=== PATIENT | male | born 1955 | race Caucasian/White ===

== ENCOUNTER 2017-04-21 21:15 | Inpatient (IN) | payer SELFPAY ==
[~2017-04-21] VITALS: Ht 185.4 cm; Wt 114.6 kg
[~2017-04-21 21:15] MED LIST: IBUP600T26 PO
[2017-04-21 21:31] VITALS: BP 149/99; PULSE 90; RESP 20; TEMP 98.3; O2SAT 99
[2017-04-21 22:21] LABS: AUTOMATED NEUTROPHIL # 4.8 TH/MM3 (1.8-7.7); BASOPHIL # 0.1 TH/MM3 (0-0.2); BASOPHIL % 0.9 % (0.0-2.0); EOSINOPHIL # 0.1 TH/MM3 (0-0.4); EOSINOPHIL % 0.8 % (0.0-4.0); HEMATOCRIT 47.8 % (39.0-51.0); HEMOGLOBIN 17.1 GM/DL (13.0-17.0); LYMPH % 21.1 % (9.0-44.0); LYMPHOCYTE # 1.5 TH/MM3 (1.0-4.8); MEAN CELL VOLUME 98.1 FL (80.0-100.0); MEAN CORPUSCULAR HGB CONC 35.7 % (32.0-36.0); MEAN PLATELET VOLUME 7.7 FL (7.0-11.0); MONO % 10.9 % (0.0-8.0); MONOCYTE # 0.8 TH/MM3 (0-0.9); NEUT % 66.3 % (16.0-70.0); PLATELET COUNT 249 TH/MM3 (150-450); RED BLOOD COUNT 4.87 MIL/MM3 (4.50-5.90); RED CELL DISTRIBUTION WIDTH 14.3 % (11.6-17.2); WHITE BLOOD COUNT 7.2 TH/MM3 (4.0-11.0)
[2017-04-21 22:40] LABS: ALBUMIN 3.9 GM/DL (3.4-5.0); AST (GOT) 60 U/L (15-37); BICARBONATE 25.1 MEQ/L (21.0-32.0); BLOOD UREA NITROGEN 9 MG/DL (7-18); CALCIUM 8.8 MG/DL (8.5-10.1); CHLORIDE 101 MEQ/L (98-107); CREATININE 0.98 MG/DL (0.60-1.30); GLOMERULAR FILTRATION RATE 77 ML/MIN (>89); GLUCOSE,RANDOM 122 MG/DL (74-106); SODIUM (NA) 137 MEQ/L (136-145)
[2017-04-21 22:42] LABS: ALT (GPT) 43 U/L (12-78)
[2017-04-21 22:44] LABS: ALKALINE PHOSPHATASE 75 U/L (45-117); TOTAL BILIRUBIN ADULT 0.4 MG/DL (0.2-1.0); TOTAL PROTEIN 8.3 GM/DL (6.4-8.2)
[2017-04-21] MEDS ORDERED: LORazepam 2 MG/ML VIAL IM ONE (22:45)
[2017-04-21 22:52] LABS: ACETAMINOPHEN LESS THAN 2.0 MCG/ML (10.0-30.0)
--- NOTE | 2017-04-21 23:14 | PD ---
HPI Chief Complaint: Psychiatric Symptoms Time Seen by Provider: 21:47 Travel History International Travel<30 days: No Contact w/Intl Traveler<30days: No Traveled to known affect area: No History of Present Illness HPI Patient is a 62 year old male brought in by his family because they are concerned he is a danger to himself and others. He has a history of chronic alcoholism, but family states he has been getting much worse since the of his 2 weeks ago. He admits his is sad over her , but denies any other issues. Family reports he has been making statements that he wants to kill himself. They report he is not caring for himself and performing basic hygiene. PFSH Past Medical History Medical History: Denies Significant Hx Diminished Hearing: Yes ([facility]) Tetanus Vaccination: Unknown Influenza Vaccination: No Past Surgical History Appendectomy: Yes Social History Alcohol Use: Yes (every other day) Tobacco Use: Yes Substance Use: No Allergies-Medications (Allergen,Severity, Reaction): Coded Allergies: penicillin G (Unverified Allergy, Severe, Rash, 10/02/16) Reported Meds & Prescriptions Reported Meds & Active Scripts Active Ibuprofen 600 Mg Tab 600 Mg PO Q8H PRN Review of Systems ROS Limitations: Intoxication Psychiatric: Positive: Depression Physical Exam Narrative GENERAL: Awake and alert, in no acute distress. SKIN: Focused skin assessment warm/dry. No wounds or signs of infection. HEAD: Atraumatic. Normocephalic. EYES: Pupils equal and round. No scleral icterus. EOMI. ENT: Mucous membranes pink and moist. NECK: Trachea midline. No JVD. CARDIOVASCULAR: Regular rate and rhythm. No murmur appreciated. RESPIRATORY: No accessory muscle use. Clear to auscultation. Breath sounds equal bilaterally. GASTROINTESTINAL: Abdomen soft, non-tender, nondistended. MUSCULOSKELETAL: No obvious deformities. No clubbing. No cyanosis. No edema. NEUROLOGICAL: Awake and alert. No obvious cranial nerve deficits. Motor grossly within normal limits. Normal speech. PSYCHIATRIC: Appropriate mood and affect; insight and judgment normal. Data Data Last Documented VS Vital Signs Date Time Temp Pulse Resp B/P (MAP) Pulse Ox O2 Delivery O2 Flow Rate FiO2 04/21/17 21:31 98.3 90 20 149/99 (116) 99 Orders Orders Complete Blood Count With Diff (04/21/17 21:58) Comprehensive Metabolic Panel (04/21/17 21:58) Psych Screen (04/21/17 21:58) Drug Screen, Random Urine (04/21/17 21:58) Alcohol (Ethanol) (04/21/17 21:58) Salicylates (Aspirin) (04/21/17 21:58) Tylenol (Acetaminophen) (04/21/17 21:58) Lorazepam Inj (Ativan Inj) (04/21/17 22:45) Labs Laboratory Tests Test 04/21/17 22:05 White Blood Count 7.2 TH/MM3 Red Blood Count 4.87 MIL/MM3 Hemoglobin 17.1 GM/DL Hematocrit 47.8 % Mean Corpuscular Volume 98.1 FL Mean Corpuscular Hemoglobin 35.0 PG Mean Corpuscular Hemoglobin Concent 35.7 % Red Cell Distribution Width 14.3 % Platelet Count 249 TH/MM3 Mean Platelet Volume 7.7 FL Neutrophils (%) (Auto) 66.3 % Lymphocytes (%) (Auto) 21.1 % Monocytes (%) (Auto) 10.9 % Eosinophils (%) (Auto) 0.8 % Basophils (%) (Auto) 0.9 % Neutrophils # (Auto) 4.8 TH/MM3 Lymphocytes # (Auto) 1.5 TH/MM3 Monocytes # (Auto) 0.8 TH/MM3 Eosinophils # (Auto) 0.1 TH/MM3 Basophils # (Auto) 0.1 TH/MM3 CBC Comment DIFF FINAL Differential Comment Blood Urea Nitrogen 9 MG/DL Creatinine 0.98 MG/DL Random Glucose 122 MG/DL Total Protein 8.3 GM/DL Albumin 3.9 GM/DL Calcium Level 8.8 MG/DL Alkaline Phosphatase 75 U/L Aspartate Amino Transf (AST/SGOT) 60 U/L Alanine Aminotransferase (ALT/SGPT) 43 U/L Total Bilirubin 0.4 MG/DL Sodium Level 137 MEQ/L Potassium Level 3.5 MEQ/L Chloride Level 101 MEQ/L Carbon Dioxide Level 25.1 MEQ/L Anion Gap 11 MEQ/L Estimat Glomerular Filtration Rate 77 ML/MIN Salicylates Level 3.3 MG/DL Acetaminophen Level LESS THAN 2.0 MCG/ML Ethyl Alcohol Level 299 MG/DL MDM Medical Decision Making Medical Screen Exam Complete: Yes Emergency Medical Condition: Yes Medical Record Reviewed: Yes Differential Diagnosis intoxication vs depression vs psychosis Narrative Course Patient is a 62 year old male who is brought in by his family due to concerns for his safety and the safety of others. He has no medical complaints at this time. He is placed under a Novak Act. Patient was given Ativan due to agitation and his continuing getting out of bed and almost falling. Labs show an elevated alcohol level, no other acute abnormalities. Patient medically cleared for psychiatric evaluation. Diagnosis Primary Impression: Alcohol intoxication Qualified Codes: F10.920 - Alcohol use, unspecified with intoxication, uncomplicated Additional Impression: Psychosis Qualified Codes: F29 - Unspecified psychosis not due to a substance or known physiological condition Lynne Romero MD Apr 21, 2017 23:14
[2017-04-21] MEDS ORDERED: LORazepam 2 MG TAB PO PRN (23:15)
[2017-04-21] MEDS ORDERED: FLUMAZENIL 0.5 MG/5 ML VIAL IV PUSH PRN (23:15)
[2017-04-21] MEDS ORDERED: LORazepam 2 MG/ML VIAL IV PUSH PRN ×4 (23:15)
[2017-04-21] MEDS ORDERED: LORazepam 1 MG TAB PO PRN (23:15)
[2017-04-22 05:17] VITALS: BP 161/99; PULSE 75; RESP 18; O2SAT 99
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
[2017-04-22 11:06] VITALS: BP 166/84; PULSE 95; RESP 21; O2SAT 97
[2017-04-22] MEDS ORDERED: NICOTINE 21 MG/24 HR PATCH T-DERMAL PRN (17:30)
[2017-04-22] MEDS ORDERED: MAGNESIUM HYDROXIDE SUSP 30 ML CUP PO PRN (17:30)
[2017-04-22] MEDS ORDERED: BENZTROPINE MESYLATE 2 MG/2 ML VIAL IM PRN (17:30)
[2017-04-22] MEDS ORDERED: diphenhydrAMINE HCL 50 MG CAP PO PRN (17:30)
[2017-04-22] MEDS ORDERED: BENZTROPINE MESYLATE 1 MG TAB PO PRN (17:30)
[2017-04-22] MEDS ORDERED: ALUMINUM/MAGNESIUM/SIMETH 30 ML CUP PO PRN (17:30)
[2017-04-22] MEDS ORDERED: ACETAMINOPHEN 325 MG TAB PO PRN (17:30)
[2017-04-22] MEDS ORDERED: REMOVE OLD NICODERM (NICOTINE) PATCH T-DERMAL PRN (18:00)
[2017-04-22 18:05] VITALS: BP 170/84; PULSE 87; RESP 18; O2SAT 100
[2017-04-22 20:15] VITALS: BP 175/99; PULSE 97; TEMP 98.9
[2017-04-23 06:11] VITALS: BP 112/65; PULSE 70; RESP 18; TEMP 98
[2017-04-23] MEDS: THIAMINE HCL 100 MG TAB PO SCH (08:17)
[2017-04-23] MEDS: FOLIC ACID 1 MG TAB PO SCH (08:17)
[2017-04-23 09:08] LABS: BICARBONATE 28.4 MEQ/L (21.0-32.0); CALCIUM 8.8 MG/DL (8.5-10.1); CREATININE 1.15 MG/DL (0.60-1.30)
[2017-04-23 09:10] LABS: CHOLESTEROL 156 MG/DL (120-200)
[2017-04-23 09:17] LABS: CHOLESTEROL/ HDL RATIO 3.07 RATIO; HDL CHOLESTEROL 50.8 MG/DL (40.0-60.0); LDL CHOLESTEROL 74 MG/DL (0-99); TRIGLYCERIDES 154 MG/DL (42-150)
--- NOTE | 2017-04-23 14:54 | HHI.HP ---
Provisional Diagnosis Admission Date Apr 22, 2017 at 17:30 [place] I. Adjustment so with mixed disturbances of emotion and conduct F 43.25, alcohol abuse with intoxication F 10.129 Certification of Person's Competence To Provide Express and Informed Consent I have personally examined Srinivasan Munoz , a person being served at [facility] on, Apr 23, 2017 14:35. Express and informed consent means consent voluntarily given in writing, by a competent person, after sufficient explanation and disclosure of the subject matter involved to enable the person to make a knowing and willful decision without any element of force, fraud, deceit, duress, or other form of constraint or coercion. This person is 18 years of age or older, is not now known to be incompetent to consent to treatment with a guardian advocate, and does not have a health care surrogate or proxy currently making medical treatment decisions. I have found this person to be one of the following: [] Competent to provide express and informed consent, as defined above, for voluntary admission to this facility and is competent to provide express and informed consent for treatment. He/she has the consistent capacity to make well reasoned, willful, and knowing decisions concerning his or her medical or mental health treatment. The person fully and consistently understands the purpose of the admission for examination/placement and is fully capable of personally exercising all rights assured under [place] [] Incompetent to provide express and informed consent to voluntary admission, and this is incompetent to provide express and informed consent to treatment. The person must be transferred to involuntary status and a petition for a guardian advocate filed with the Circuit Court. [xx] Refusing to provide express and informed consent to voluntary admission but is competent to provide express and informed consent for treatment. The person must be discharged or transferred to involuntary status. Form shall be completed within 24 hours of a person's arrival at the receiving facility and filed in the clinical record of each person: 1. Admitted on a voluntary basis 2. Permitted to provide express and informed consent to his/her own treatment 3. Allowed to transfer from involuntary to voluntary status 4. Prior to permitting a person to consent to his or her own treatment after having been previously found incompetent to consent to treatment. History of Present Illness Capacity: Lacks Capacity (patient lacks capacity to sign for admission, patient has capacity to sign for medication) HPI Patient is 62-year-old white male who comes here under Novak act signed by Lynne Sandersshon [facility] dated April 21, 2017 at 10:30 PM at document reviewed stating depression, alcoholism, patient says he is feeling depressed since his 2 weeks ago. His family states he has been making statements about killing himself family reports she does not take care of himself does not bathe our practice basic hygiene they also report he drinks and drives and is a danger to others. Patient seen screened in the ED blood alcohol level of 299 negative toxicology. Patient was initially seen in consultation by Dr. Augustine Hudson yesterday. Recommended hospitalization on the psychiatric unit once medically clear. Patient seen in his room on 2600 with nurse charito chery. He is alert oriented [place] heavily built white male somewhat disheveled in appearance stating his of cancer 2 weeks ago in his arms. He states that they've been but they've been together 34 years and have a 21-year-old daughter. It appears his "" sign the family who over to the daughter. It appears the patient is planning on leaving the house and moving in with her friend. Since his he said increased depression with significant increase in his alcohol use with daily drinking. Though he does acknowledge alcohol use since a young adult more increase in his 30s she does have a history of DUI a number of years ago. He does acknowledge episodes in his life of daily drinking and drinking until intoxicated. Though he denies any other legal issues related to it. He denies any other drug use. He denies any prior psychiatric contact hospitalization her psychotropic medication. He is vague about continued suicidal ideation. He does denied at this time staying he is X and he would not do that. Main event at the present time I feel patient does meet criteria for further observation assessment under the Novak act. I will do first opinion request second opinion. I feel he does have capacity to sign for medications. We will the hospitalist consult will less, we will initiate thewa protocol, will attempt to reach a tremor grief counselor to assist us. Patient also states he fell a few days ago landed on the tip of his right shoulder is having continual pain and a lump on that area will get it x-ray of the left shoulder also. Hopefully we fairly short stay and we can return the patient to his family Review of Systems Constitutional: DENIES: Diaphoretic episodes, Fatigue, Fever, Weight gain, Weight loss, Chills, Dizziness, Change in appetite, Night Sweats Endocrine: DENIES: Heat/cold intolerance, Polydipsia, Polyuria, Polyphagia Eyes: DENIES: Blurred vision, Diplopia, Eye inflammation, Eye pain, Vision loss , Photosensitivity, Double Vision Ears, nose, mouth, throat: DENIES: Tinnitus, Hearing loss, Vertigo, Nasal discharge, Oral lesions, Throat pain, Hoarseness, Ear Pain, Running Nose, Epistaxis, Sinus Pain, Toothache, Odynophagia Respiratory: DENIES: Apneas, Cough, Snoring, Wheezing, Hemoptysis, Sputum production, Shortness of breath Cardiovascular: DENIES: Chest pain, Palpitations, Syncope, Dyspnea on Exertion , PND, Lower Extremity Edema, Orthopnea, Claudication Gastrointestinal: DENIES: Abdominal pain, Black stools, Bloody stools, Constipation, Diarrhea, Nausea, Vomiting, Difficulty Swallowing, Anorexia Genitourinary: DENIES: Sexual dysfunction, Urinary frequency, Urinary incontinence, Urgency, Hematuria, Dysuria, Nocturia, Penile Discharge, Testicular Pain, Testicular Swelling Musculoskeletal: COMPLAINS OF: Joint pain, Joint Swelling Integumentary: DENIES: Abnormal pigmentation, Nail changes, Pruritus, Rash Hematologic/lymphatic: DENIES: Bruising, Lymphadenopathy Immunologic/allergic: DENIES: Eczema, Urticaria Neurologic: DENIES: Abnormal gait, Headache, Localized weakness, Paresthesias, Seizures, Speech Problems, Tremor, Poor Balance Psychiatric: COMPLAINS OF: Depression, Suicidal Ideation (with alcohol abuse) Past Psych History Psychological trauma history Patient denies Violence risk - others (6 mos) Low Violence risk - self (6 mos) Patient made suicidal ideation statements Substance Abuse History Drugs/Alcohol past 12 months Long history alcohol abuse active at the present time Past Family Social History Coded Allergies: penicillin G (Unverified Allergy, Severe, Rash, 10/02/16) Discontinued Scripts Ibuprofen (Ibuprofen) 600 Mg Tab, 600 MG PO Q8H Y for PAIN, #30 TAB Prov:Courtney Robert 04/26/14 Current Medications Medications (Trade) Dose Ordered Sig/Amarilis Route Start Time Stop Time Status Last Admin (Romazicon Inj) 0.2 mg Q1M PRN IV PUSH 04/21/17 23:15 (Ativan) 1 mg Q4H PRN PO 04/21/17 23:15 (Ativan Inj) 1 mg Q4H PRN IV PUSH 04/21/17 23:15 04/21/17 23:46 (Ativan) 2 mg Q2H PRN PO 04/21/17 23:15 (Ativan Inj) 2 mg Q2H PRN IV PUSH 04/21/17 23:15 (Ativan Inj) 2 mg Q1H PRN IV PUSH 04/21/17 23:15 (Ativan Inj) 2 mg Q15M PRN IV PUSH 04/21/17 23:15 (Vitamin B1) 100 mg DAILY PO 04/23/17 09:00 04/23/17 08:17 (Folate) 1 mg DAILY PO 04/23/17 09:00 04/23/17 08:17 (Benadryl) 50 mg HS PRN PO 04/22/17 17:30 (Tylenol) 650 mg Q4H PRN PO 04/22/17 17:30 (Milk Of Magnesia Liq) 30 ml DAILY PRN PO 04/22/17 17:30 (Mag-Al Plus Susp Liq) 30 ml Q6H PRN PO 04/22/17 17:30 (Habitrol 21 Mg Patch.24 Hr) 1 patch DAILY PRN T-DERMAL 04/22/17 17:30 (Cogentin) 1 mg Q12H PRN PO 04/22/17 17:30 (Cogentin Inj) 1 mg Q12H PRN IM 04/22/17 17:30 Miscellaneous Information 1 HS PRN T-DERMAL 04/22/17 18:00 Family Psych History Patient denies Social History Patient recently of his of 34 years 2 weeks ago continues to grieve. He has 2 older sons by a prior relationship, has a 20-year-old daughter by this relationship Patient's Strengths (min. 2) Patient verbal label [facility] cooperative Physical Exam Patient medically cleared ED patient is having visual in no acute distress no respiratory distress, no complaints of abdominal pain, does complain of pain and slight swelling over the tip of his left shoulder, will be getting x-ray of that area, there is some slight decrease range of motion at the joint otherwise Vital Signs Vital Signs Date Time Temp Pulse Resp B/P (MAP) Pulse Ox O2 Delivery O2 Flow Rate FiO2 04/23/17 06:11 98.0 70 18 112/65 (81) 04/22/17 18:05 100 Room Air I/O 04/23/17 04/23/17 04/24/17 08:00 16:00 00:00 Intake Total 360 ml Balance 360 ml Lab Results Test 04/23/17 08:36 Blood Urea Nitrogen 14 MG/DL Creatinine 1.15 MG/DL Random Glucose 152 MG/DL Calcium Level 8.8 MG/DL Sodium Level 136 MEQ/L Potassium Level 3.8 MEQ/L Chloride Level 99 MEQ/L Carbon Dioxide Level 28.4 MEQ/L Anion Gap 9 MEQ/L Estimat Glomerular Filtration Rate 64 ML/MIN Triglycerides Level 154 MG/DL Cholesterol Level 156 MG/DL LDL Cholesterol 74 MG/DL HDL Cholesterol 50.8 MG/DL Cholesterol/HDL Ratio 3.07 RATIO Vitamin B12 Level 436 PG/ML Thyroid Stimulating Hormone 3rd Gen 4.740 uIU/ML Mental Status Examination Appearance: Appropriate Consciousness: Alert Orientation: x4 Motor Activity: Normal gait Speech: Unremarkable Language: Adequate Fund of Knowledge: Adequate Attention and Concentration: Adequate Memory: Unremarkable Mood: Sad Affect: Other (decreased range and intensity) Thought Process & Associations: Intact Thought Content: Appropriate Hallucination Type: None Delusion Type: None Suicidal Ideation: Yes (patient denies at this time) Suicidal Plan: No Suicidal Intention: No Homicidal Ideation: No Homicidal Plan: No Homicidal Intention: No Insight: Adequate Judgment: Adequate Assessment & Plan Problem List: (1) Adjustment disorder with mixed disturbance of emotions and conduct ICD Codes: F43.25 - Adjustment disorder with mixed disturbance of emotions and conduct (2) Alcohol abuse with intoxication ICD Codes: F10.129 - Alcohol abuse with intoxication, unspecified Assessment & Plan Estimated LOS: days patient doesn't meet criteria for further assessment and observation of the Novak act. I'll do first opinion request second opinion. I feel his capacity sign for medications. Was consult will less, will get x-ray of his left shoulder, will place him on theiwa protocol. Also history of fairly short stay and can return to his family C Discharge Planning Return to his family Request HC Surrog/Guard Advoc?: No Srinivasan Jones MD Apr 23, 2017 14:54
[2017-04-23 15:29] VITALS: BP 186/109; PULSE 70; RESP 18; TEMP 98.2; O2SAT 99
--- NOTE | 2017-04-23 15:30 | RADRPT ---
EXAM DATE/TIME: 04/23/2017 15:00 [place] COMPARISON: No previous studies available for comparison. INDICATIONS : Left shoulder pain due to fall 2 weeks ago. MEDICAL HISTORY : None. SURGICAL HISTORY : None. ENCOUNTER: Initial ACUITY: 1 day PAIN SCORE: 3/10 LOCATION: Left Shoulder. FINDINGS: 5 images of the left shoulder reveal elevation of the distal clavicle relative to the acromion. There is widening of the coracoclavicular distance. There is widening of the acromioclavicular distance. S ubacromial space narrowing is seen due to inferior osteophyte production arising from the acromion. M ild osteophytes seen at the glenohumeral joint. No acute fracture observed. Soft tissues are unremark able. CONCLUSION: Acromioclavicular separation. Rajeev Helm Jr., MD on April 23, 2017 at 15:27 Board Certified Radiologist. This report was verified electronically.
[2017-04-23] MEDS ORDERED: LISINOPRIL 5 MG TAB PO ONE (16:00)
[2017-04-23] MEDS ORDERED: hydrALAZINE HCL 10 MG TAB PO PRN (16:00)
[2017-04-23] MEDS ORDERED: cloNIDine HCL 0.2 MG TAB PO ONE (16:00)
[2017-04-23] MEDS: NICOTINE 21 MG/24 HR PATCH T-DERMAL SCH (17:00)
--- NOTE | 2017-04-23 17:10 | PD.CONS ---
HPI Service [facility] Hospitalists Consult Requested By Psychiatric services Reason for Consult Medical management Primary Care Physician No Primary Care Physician Diagnoses: History of Present Illness This is a 62yo male without any significant PMHX but admittedly does not go to the doctor who presented to [facility] ED by his family due to being concerned he is a danger to himself and others and was placed under Novak Act. Patient has become more depressed since suffering the recent of his 2 weeks ago. Patient was intoxicated at presentation with ethyl alcohol level of 299. Patient has since been admitted to the inpatient psychiatric unit and hospitalist services have been consulted for medical management. Patient is seen and examined. He is calm and pleasant. He reports daily alcohol use of 2- 3 beers/night and occasional whiskey on the weekend. He denies any history of alcohol withdrawals or seizure. He fell onto his left shoulder approximately one month ago and now has a noticeable nonpainful bump on the top of his shoulder. He reports adequate range of motion. He reports progressive numbness of both feet for the past several years. He denies any known hx of diabetes. He denies any dizziness, headache or vision changes. He denies any chest pain or dyspnea. He denies any nausea, vomiting or abdominal pain. He denies any dysuria, hematochezia or melena. He does report episode of passing blood clots in the urine about a month ago but this has since resolved. He reports having high blood pressure in his 20s but improved after he initiated a regular exercise program. Review of Systems Except as stated in HPI: all other systems reviewed are Neg Past Family Social History Allergies: Coded Allergies: penicillin G (Unverified Allergy, Severe, Rash, 10/02/16) Past Medical History Patient denies any previous medical history Past Surgical History Appendectomy Reported Medications Patient denies taking any medications at home Active Ordered Medications Current Medications Medications (Trade) Dose Ordered Sig/Amarilis Route Start Time Stop Time Status Last Admin (Romazicon Inj) 0.2 mg Q1M PRN IV PUSH 04/21/17 23:15 (Ativan) 1 mg Q4H PRN PO 04/21/17 23:15 (Ativan Inj) 1 mg Q4H PRN IV PUSH 04/21/17 23:15 04/21/17 23:46 (Ativan) 2 mg Q2H PRN PO 04/21/17 23:15 (Ativan Inj) 2 mg Q2H PRN IV PUSH 04/21/17 23:15 (Ativan Inj) 2 mg Q1H PRN IV PUSH 04/21/17 23:15 (Ativan Inj) 2 mg Q15M PRN IV PUSH 04/21/17 23:15 (Vitamin B1) 100 mg DAILY PO 04/23/17 09:00 04/23/17 08:17 (Folate) 1 mg DAILY PO 04/23/17 09:00 04/23/17 08:17 (Benadryl) 50 mg HS PRN PO 04/22/17 17:30 (Tylenol) 650 mg Q4H PRN PO 04/22/17 17:30 (Milk Of Magnesia Liq) 30 ml DAILY PRN PO 04/22/17 17:30 (Mag-Al Plus Susp Liq) 30 ml Q6H PRN PO 04/22/17 17:30 (Habitrol 21 Mg Patch.24 Hr) 1 patch DAILY PRN T-DERMAL 04/22/17 17:30 (Cogentin) 1 mg Q12H PRN PO 04/22/17 17:30 (Cogentin Inj) 1 mg Q12H PRN IM 04/22/17 17:30 Miscellaneous Information 1 HS PRN T-DERMAL 04/22/17 18:00 (Prinivil) 5 mg DAILY PO 04/24/17 09:00 (Apresoline) 10 mg Q6HR PRN PO 04/23/17 16:00 (Theragran) 1 tab DAILY PO 04/24/17 09:00 Family History Grandfather, DM Father, CABGx4, age 60 Social History Patient reports tobacco use of 1ppd. He reports alcohol consumption of 2-3 beers/nightly and whiskey on the weekends. He denies any illicit drug use. He lives with his daughter. He lost his to cancer 2 weeks ago. Physical Exam Vital Signs Vital Signs Date Time Temp Pulse Resp B/P (MAP) Pulse Ox O2 Delivery O2 Flow Rate FiO2 04/23/17 15:29 98.2 70 18 186/109 (134) 99 04/23/17 06:11 98.0 70 18 112/65 (81) 04/22/17 20:17 04/22/17 20:15 98.9 97 175/99 (124) 04/22/17 18:05 87 18 170/84 (112) 100 Room Air Physical Exam GENERAL: This is a well-nourished, well-developed obese male patient, in no apparent distress. Awake and alert. Calm and pleasant. SKIN: No rashes, ecchymoses or lesions. Cool and dry. HEAD: Atraumatic. Normocephalic. No temporal or scalp tenderness. EYES: Pupils equal round and reactive. Extraocular motions intact. No scleral icterus. No injection or drainage. ENT: Nose without bleeding or purulent drainage. Throat without erythema, tonsillar hypertrophy or exudate. Uvula midline. Airway patent. NECK: Trachea midline. No lymphadenopathy. Supple, nontender, no meningeal signs. CARDIOVASCULAR: Regular rate and rhythm without murmurs, gallops, or rubs. RESPIRATORY: Clear to auscultation. Breath sounds equal bilaterally. No wheezes , rales, or rhonchi. GASTROINTESTINAL: Abdomen soft, non-tender, nondistended. No hepato-splenomegaly , or palpable masses. No guarding. MUSCULOSKELETAL: Extremities without clubbing, cyanosis, or edema. No joint tenderness, effusion, or edema noted. No calf tenderness. (+)prominent distal clavicle, NTTP. NEUROLOGICAL: Awake and alert. Cranial nerves II through XII grossly intact. Motor and sensory grossly within normal limits. Five out of 5 muscle strength in all muscle groups. Normal speech. Laboratory Laboratory Tests Test 04/23/17 08:36 Blood Urea Nitrogen 14 Creatinine 1.15 Random Glucose 152 Calcium Level 8.8 Sodium Level 136 Potassium Level 3.8 Chloride Level 99 Carbon Dioxide Level 28.4 Anion Gap 9 Estimat Glomerular Filtration Rate 64 Triglycerides Level 154 Cholesterol Level 156 LDL Cholesterol 74 HDL Cholesterol 50.8 Cholesterol/HDL Ratio 3.07 Vitamin B12 Level 436 Thyroid Stimulating Hormone 3rd Gen 4.740 Result Diagram: 04/21/17 2205 04/23/17 0836 Imaging Last Impressions Shoulder X-Ray 04/23/17 0000 Signed Impressions: Service Date/Time: Sunday, April 23, 2017 15:00 - CONCLUSION: Acromioclavicular separation. Rajeev Helm Jr., MD Assessment and Plan Assessment and Plan 62yo male without any significant PMHX but admittedly does not go to the doctor who presented to [facility] ED by his family due to being concerned he is a danger to himself and others and was placed under Novak Act. Patient has become more depressed since suffering the recent of his 2 weeks ago. Patient was intoxicated at presentation with ethyl alcohol level of 299. Patient has since been admitted to the inpatient psychiatric unit and hospitalist services have been consulted for medical management. Depression, situational Adjustment disorder - Management per psychiatric team Alcohol abuse -Ethyl alcohol level 299 -CIWA protocol -thiamine/folic acid/MVI daily -monitor for signs of alcohol withdrawal Hypertension -start on Lisinopril 5mg daily -Hydralazine 10mg po prn with parameters -continue to monitor BP and adjust treatment accordingly Hyperglycemia Bilateral foot neuropathy -concern for diabetes -A1c pending Left shoulder deformity -s/p fall onto left shoulder one month ago -xray left shoulder shows elevation of the distal clavicle, widening of the coracoclavicular distance and widening of the acromioclavicular distance c/w AC separation, images reviewed by me -Consult orthopedics, appreciate assistance Macroscopic hematuria -episode one month ago, now resolved -hx of tobacco use -obtain UA -discussed with patient need to follow up with Urologist as outpatient for likely cystoscopy to rule out bladder tumor Ongoing tobaccoism -smoking cessation -Nicotine patch ordered DVT prophylaxis -patient is ambulatory Thank you very kindly for this consultation and will continue to follow along with you. Discussed Condition With patient, nursing staff, Mariama Gilliland Apr 23, 2017 17:10
[2017-04-23 17:14] VITALS: BP 163/76; PULSE 72
[2017-04-23 18:00] LABS: AMORPHOUS SEDIMENT, URINE RARE; BACTERIA, URINE RARE /hpf; BILIRUBIN, URINE NEG (NEG); BLOOD, URINE MOD (NEG); GLUCOSE,URINE NEG (NEG); KETONE, URINE NEG (NEG); MUCUS URINE FEW /lpf (OCC); NITRITE,URINE NEG (NEG); SQUAMOUS EPITHELIAL CELL URINE <1 /hpf (0-5); URINE COLOR YELLOW (YELLW/STRAW); URINE LEUKOCYTE ESTERASE LARGE (NEG)
[2017-04-23 18:12] VITALS: BP 186/109; PULSE 70; RESP 18; TEMP 98.2; O2SAT 99
[2017-04-24 06:06] VITALS: BP 165/84; PULSE 67; RESP 18; TEMP 98.1; O2SAT 98
[2017-04-24] MEDS: FOLIC ACID 1 MG TAB PO SCH (08:25)
[2017-04-24] MEDS: NICOTINE 21 MG/24 HR PATCH T-DERMAL SCH (08:25)
[2017-04-24] MEDS: THIAMINE HCL 100 MG TAB PO SCH (08:25)
[2017-04-24] MEDS ORDERED: LISINOPRIL 5 MG TAB PO SCH (09:00)
[2017-04-24] MEDS ORDERED: MULTIVITAMIN TAB PO SCH (09:00)
[2017-04-24] MEDS ORDERED: FOLI1TAB6 PO (12:49)
[2017-04-24] MEDS ORDERED: LEXA10TA PO (12:49)
[2017-04-24] MEDS ORDERED: THERTAB15 PO (12:49)
[2017-04-24] MEDS ORDERED: THIA100 PO (12:49)
[2017-04-24] MEDS ORDERED: LISI-519 PO (12:49)
--- NOTE | 2017-04-24 12:56 | HHI.DS ---
Psychiatry Discharge Summary Inpatient Psychiatric care?: Yes Advance Directive: Yes Mental Health AdvanceDirective: No Health Care Proxy: No Admission Admission Date Apr 22, 2017 at 17:30 Admission Diagnosis: (1) Adjustment disorder with mixed disturbance of emotions and conduct ICD Code: F43.25 - Adjustment disorder with mixed disturbance of emotions and conduct (2) Alcohol abuse with intoxication ICD Code: F10.129 - Alcohol abuse with intoxication, unspecified Brief History Patient is 62-year-old white male who comes here under Novak act signed by [facility] dated April 21, 2017 at 10:30 PM at document reviewed stating depression, alcoholism, patient says he is feeling depressed since his 2 weeks ago. His family states he has been making statements about killing himself family reports she does not take care of himself does not bathe our practice basic hygiene they also report he drinks and drives and is a danger to others. Patient seen screened in the ED blood alcohol level of 299 negative toxicology. Patient was initially seen in consultation by Dr. Augustine Hudson yesterday. Recommended hospitalization on the psychiatric unit once medically clear. Patient seen in his room on 2600 with nurse charito chery. He is alert oriented [place] heavily built white male somewhat disheveled in appearance stating his of cancer 2 weeks ago in his arms. He states that they've been but they've been together 34 years and have a 21-year-old daughter. It appears his "" sign the family who over to the daughter. It appears the patient is planning on leaving the house and moving in with her friend. Since his he said increased depression with significant increase in his alcohol use with daily drinking. Though he does acknowledge alcohol use since a young adult more increase in his 30s she does have a history of DUI a number of years ago. He does acknowledge episodes in his life of daily drinking and drinking until intoxicated. Though he denies any other legal issues related to it. He denies any other drug use. He denies any prior psychiatric contact hospitalization her psychotropic medication. He is vague about continued suicidal ideation. He does denied at this time staying he is X and he would not do that. Main event at the present time I feel patient does meet criteria for further observation assessment under the Novak act. I will do first opinion request second opinion. I feel he does have capacity to sign for medications. We will the hospitalist consult will less, [facility], will attempt to reach a tremor grief counselor to assist us. Patient also states he fell a few days ago landed on the tip of his right shoulder is having continual pain and a lump on that area will get it x-ray of the left shoulder also. Hopefully we fairly short stay and we can return the patient to his family Tobacco Use In Past 30 Days: 5 or More Cigarettes/Day Alcohol Use: 2-3 Times Per Week Hospital Course Patient's hospital course was a brief, patient initial cooperation with the milieu and the programming from day 1. Patient compliant with his medication. Patient seen today in day room with floor staff, chart review, patient discussed with nurse, patient continues to denies suicidality homicidality voices or visions. Physical continues depressed but he showing some insight into the process. It appears a 21-year-old daughter still wants him out of the family house. He does state he is friends he can stay with tonight refusing days will finds his own living accommodations. We'll start patient on Lexapro 10 mg daily, follow-up [facility] act for medication management and counseling also suggest referral to hospice trauma grief counseling, also would recommend absolute abstinence, referral to AA Results Blood Pressure 165 / 84 Vital Signs Date Time Temp Pulse Resp B/P (MAP) Pulse Ox O2 Delivery O2 Flow Rate FiO2 04/24/17 06:06 98.1 67 18 165/84 (111) 98 04/22/17 18:05 Room Air Laboratory Tests Test 04/21/17 22:05 04/21/17 22:30 04/23/17 08:36 04/23/17 17:40 Hemoglobin 17.1 GM/DL (13.0-17.0) Mean Corpuscular Hemoglobin 35.0 PG (27.0-34.0) Monocytes (%) (Auto) 10.9 % (0.0-8.0) Random Glucose 122 MG/DL (74-106) 152 MG/DL (74-106) Total Protein 8.3 GM/DL (6.4-8.2) Aspartate Amino Transf (AST/SGOT) 60 U/L (15-37) Estimat Glomerular Filtration Rate 77 ML/MIN (>89) 64 ML/MIN (>89) Acetaminophen Level LESS THAN 2.0 MCG/ML Ethyl Alcohol Level 299 MG/DL (0-5) Triglycerides Level 154 MG/DL (42-150) Thyroid Stimulating Hormone 3rd Gen 4.740 uIU/ML (0.358-3.740) Urine Turbidity HAZY (CLEAR) Urine Protein 100 mg/dL (NEG-TRACE) Urine Occult Blood MOD (NEG) Urine Leukocyte Esterase LARGE (NEG) Urine RBC 93 /hpf (0-3) Urine Bacteria RARE /hpf (NONE) Urine Mucus FEW /lpf (OCC) Laboratory Results Test 04/23/17 08:36 Cholesterol Level 156 MG/DL (120-200) HDL Cholesterol 50.8 MG/DL (40.0-60.0) Hemoglobin A1c 6.0 % (4.3-6.0) LDL Cholesterol 74 MG/DL (0-99) Triglycerides Level 154 MG/DL (42-150) Summary of Procedures None done Imaging Last Impressions Shoulder X-Ray 04/23/17 0000 Signed Impressions: Service Date/Time: Sunday, April 23, 2017 15:00 - CONCLUSION: Acromioclavicular separation. Rajeev Helm Jr., MD Pending results at discharge: No Medications # of Antipsychotic meds at D/C: 0 Approp Antipsych med options 1 - Minimum of three failed multiple trials of monotherapy. 2 - Documented plan to taper to monotherapy due to previous use of multiple meds OR cross-taper in progress at D/C. 3 - Documentation of augmentation of Clozapine. 4 - Justification other than those listed in allowable values 1-3, document here : Discharge Discharge Date: Apr 24, 2017 Discharge Diagnosis: (1) Alcohol abuse with intoxication Diagnosis: Secondary ICD Code: F10.129 - Alcohol abuse with intoxication, unspecified (2) Adjustment disorder with mixed disturbance of emotions and conduct Diagnosis: Principal ICD Code: F43.25 - Adjustment disorder with mixed disturbance of emotions and conduct Pt Condition on Discharge: Stable Discharge Disposition: Discharge Home Discharge Instructions Diet Instructions: As Tolerated, No Restrictions Activities you can perform: Regular-No Restrictions Scheduled Appointment: Tomasz Stone (also refer to trauma grief counseling, refer also to AA) Discharge Time > 30 minutes Mental Status Examination Appearance: Appropriate Consciousness: Alert Orientation: x4 Motor Activity: Normal gait Speech: Unremarkable Language: Adequate Fund of Knowledge: Adequate Attention and Concentration: Adequate Memory: Unremarkable Mood: Sad Affect: Other (decreased range and intensity) Thought Process & Associations: Intact Thought Content: Appropriate Hallucination Type: None Delusion Type: None Suicidal Ideation: Yes (patient denies at this time) Suicidal Plan: No Suicidal Intention: No Homicidal Ideation: No Homicidal Plan: No Homicidal Intention: No Insight: Adequate Judgment: Adequate Discharge/Advance Care Plan Health Problems: (1) Adjustment disorder with mixed disturbance of emotions and conduct (2) Alcohol abuse with intoxication Goals to promote your health * To prevent worsening of your condition and complications * To maintain your health at the optimal level Directions to meet your goals Take your medications as prescribed Follow your dietary instruction Follow activity as directed Keep your appointments as scheduled Take your immunizations and boosters as scheduled If your symptoms worsen call your PCP, if no PCP go to Urgent Care Center or Emergency Room For 10/09 questions related to your inpatient stay or results of tests pending at discharge, please contact Dr. Srinivasan Jones at Smoking is Dangerous to Your Health. Avoid second hand smoking Srinivasan Jones MD Apr 24, 2017 12:56
--- NOTE | 2017-04-24 13:57 | HHI.PR ---
Objective Vitals Vital Signs Date Time Temp Pulse Resp B/P (MAP) Pulse Ox O2 Delivery O2 Flow Rate FiO2 04/24/17 06:06 98.1 67 18 165/84 (111) 98 04/23/17 18:12 98.2 70 18 186/109 (134) 99 04/23/17 17:14 72 163/76 (105) 04/23/17 15:29 98.2 70 18 186/109 (134) 99 I/O 04/23/17 04/23/17 04/23/17 04/24/17 04/24/17 04/24/17 07:00 15:00 23:00 07:00 15:00 23:00 Intake Total 360 ml 240 ml Balance 360 ml 240 ml Intake Oral 360 ml 240 ml Result Diagram: 04/21/17 2205 04/23/17 0836 Mariama Maurice Apr 24, 2017 13:57
--- NOTE | 2017-04-24 14:40 | MB ---
cc: Luis Lopez DATE OF CONSULT: CHIEF COMPLAINT: Psychiatric symptoms and left shoulder deformity. HISTORY OF PRESENT ILLNESS: This is a 62-year-old male who was brought to [facility] by his family because of concerns for harm to himself or others. The patient does have a history of alcoholism and states that this has gotten worse since the of his 2 weeks ago. The patient was Novak Acted and kept in the psychiatric facility. Prior to his admission to the hospital, approximately 3 weeks ago, the patient reports coming into his house and tripping over a cat. The patient states he landed on his left shoulder. The patient denied having any pain at this time or thereafter. The patient did report an obvious deformity to the left shoulder after his fall. The patient did not have this evaluated. Currently, the patient has no pain to the left shoulder and has full functional capability. REVIEW OF SYSTEMS: Negative x 12 except for what is stated in the HPI. PAST MEDICAL HISTORY: Unremarkable. PAST SURGICAL HISTORY: Includes an appendectomy. SOCIAL HISTORY: The patient admits to alcohol use every other day. The patient admits to tobacco use, but denies substance use. ALLERGIES: THE PATIENT HAS AN ALLERGY TO PENICILLIN. MEDICATIONS: The patient takes ibuprofen 600 mg every 8 hours as needed. PHYSICAL EXAMINATION: VITAL SIGNS: Temperature 98.1, pulse 67, respirations 18, blood pressure 165/84, and oxygen saturation is 98% on room air. GENERAL: The patient is awake and alert and in no acute distress. SKIN: Warm and dry. HEAD: Atraumatic and normocephalic. EYES: PERRLA. EARS, NOSE, AND THROAT: Mucous membranes are pink and moist. NECK: Supple and trachea is midline. CARDIOVASCULAR: The patient has 2+ radial and pedal pulses bilaterally. RESPIRATORY: The patient has symmetric chest wall rise and nonlabored breathing. GASTROINTESTINAL: The patient's abdomen is round, soft, and nontender. MUSCULOSKELETAL: The patient has an obvious deformity to the left AC joint. The patient has no tenderness to palpation over this area. The skin is intact. The patient has full active range of motion of the left upper extremity. There are no other musculoskeletal concerns. NEUROLOGICAL: The patient is awake and alert. The patient has on obvious cranial nerve deficits. PSYCHIATRIC: Currently, the patient has appropriate mood and affect. LABORATORY STUDIES: Labs taken on 04/21/2017 show a white blood cell count of 7.2, hemoglobin 17.1, hematocrit 47.8, platelets 249. Labs taken on 04/23/2017 show a creatinine of 1.15 and a glucose of 152. Urinalysis taken on 04/23/2017 shows large leukoesterase and high bacteria. Culture is indicated. Urine culture shows no growth in 24 hours. Shoulder x-ray, 2 views of the left shoulder on 04/23/2017 reads as an acromioclavicular separation. I have reviewed the images and agree with the radiologist's interpretation. IMPRESSION: 1. Left shoulder moderate acromioclavicular joint separation. 2. Novak Act. MEDICAL DECISION-MAKING: Based on the patient's current psychiatric situation and his current clinical presentation, I have elected to remain conservative with the patient's management of his left shoulder acromioclavicular joint separation. We did discuss the option of surgical management if the patient elects to have this done in the future. We briefly discussed this procedure. At this time, I do not feel that the patient needs any immobilization, as he is pain free and has full functional capability. The patient should follow up with the undersigned in the office if he elects to have further discussions regarding the option of surgical management. At this time, the patient is not interested in surgery. I have reviewed the above impression and plan of care with Dr. Dial and he agrees with this documentation. Luis Lopez [facility] MD EVE Deleon/TI , 02:16 PM , 02:39 PM
== END 2017-04-24 14:25 | disposition home or self-care (01) | DRG 882 ==
LOC: NEPD 21:15 → NEDA 04-22 17:30 → H260 04-22 20:17
PROVIDERS: ADMIT Psychiatry & Neurology Psychiatry; ATTEND Psychiatry & Neurology Psychiatry
DX: F43.25 Adjustment disorder with mixed disturbance of emotions and conduct (principal); R45.851 Suicidal ideations; G62.9 Polyneuropathy, unspecified; F10.229 Alcohol dependence with intoxication, unspecified; I10 Essential (primary) hypertension; S43.102A Unspecified dislocation of left acromioclavicular joint, initial encounter; R73.9 Hyperglycemia, unspecified; R31.0 Gross hematuria; H91.90 Unspecified hearing loss, unspecified ear; F17.200 Nicotine dependence, unspecified, uncomplicated; W01.0XXA Fall on same level from slipping, tripping and stumbling without subsequent striking against object, initial encounter; Y90.8 Blood alcohol level of 240 mg/100 ml or more; Y92.009 Unspecified place in unspecified non-institutional (private) residence as the place of occurrence of the external cause; Z88.0 Allergy status to penicillin; Z88.6 Allergy status to analgesic agent
CPT/HCPCS: 73030; 80048; 80053; 80061; 80307; 81001; 82607; 83036; 84443; 85025; 87086; 96372; 96374; J2060; Q0163

== ENCOUNTER 2017-12-07 14:28 | Observation (INO) ==
--- NOTE | 2017-12-07 14:42 | ED ---
HPI General Chief Complaint: Chest Pain Stated Complaint: Chest pains Time Seen by Provider: 12/07/17 14:39 Source: patient Mode of arrival: ambulatory Limitations: no limitations History of Present Illness HPI narrative: 62-year-old male patient presents to the ER today for several days of pain in the left arm which she states goes from the elbow up to the shoulder area, is currently an 8 out of 10, and he has had urinary frequency, and blood in his urine today. He denies any abdominal pains, chest pains, fevers, coughing, shortness of breath, or any other symptoms. Related Data Home Medications Medication Instructions Recorded Confirmed No Known Home Medications 12/07/17 12/07/17 Allergies Allergy/AdvReac Type Severity Reaction Status Date / Time penicillin G Allergy Severe Rash Verified 12/07/17 14:37 Review of Systems ROS: all other systems reviewed are negative [facility] Surgical History Surgical History Hx of appendectomy (Acute) Social History Social History Substance History: No History of Abuse Second Hand Smoke Exposure: No Smoking Status: Current every day smoker Tobacco Type: Cigarettes How Often Do You Have a Drink Containing Alcohol: 4 or more times a week Recent Travel in [facility] within the Last 8 Weeks: No Recent Out of Country Travel within the Last 8 Weeks: No Immunization History Tetanus Immunization: >5 Years Exam Narrative Exam Narrative: GENERAL: Well-developed elderly male patient currently in mild distress. Awake and oriented x3. SKIN: Focused skin assessment warm/dry. HEAD: Atraumatic. Normocephalic. EYES: Pupils equal and round. No scleral icterus. No injection or drainage. ENT: No nasal bleeding or discharge. Mucous membranes pink and moist. NECK: Trachea midline. No JVD. Supple. CARDIOVASCULAR: Regular rate and rhythm. No murmur appreciated. Pulses are present and equal bilaterally. RESPIRATORY: No accessory muscle use. Clear to auscultation. Breath sounds equal bilaterally. GASTROINTESTINAL: Abdomen soft, mild suprapubic tenderness without guarding or rebound, nondistended. Hepatic and splenic margins not palpable. MUSCULOSKELETAL: No obvious deformities. No clubbing. No cyanosis. No edema. NEUROLOGICAL: Awake and alert. No obvious cranial nerve deficits. Motor grossly within normal limits. Normal speech. PSYCHIATRIC: Appropriate mood and affect; insight and judgment normal. Course Initial Documented Vital Signs Temperature 97.9 F 12/07/17 14:29 Pulse Rate 86 12/07/17 14:29 Respiratory Rate 16 12/07/17 14:29 Blood Pressure 130/72 12/07/17 14:29 Pulse Oximetry 95 12/07/17 14:29 Last Documented Vital Signs Temperature 97.9 F 12/07/17 14:29 Pulse Rate 75 12/07/17 16:10 Respiratory Rate 19 12/07/17 16:10 Blood Pressure 156/91 H 12/07/17 16:10 Pulse Oximetry 99 12/07/17 16:10 Medical Decision Making MDM Narrative Medical decision making narrative: EKG did not indicate significant dysrhythmias or ST changes. Lab work was fairly unremarkable except for significant red blood cells in the urine as well as UTI. P.o. Bactrim was given in the ER. Considering his history, and the fact that he does not have outpatient medical care, there is concerned that there may be an anginal equivalent in his left arm pain, questionable atypical chest pain. Planning to admit for further evaluation and treatment. Case is discussed with Dr. Mo for admission. Medical Screen Exam Complete: Yes Emergency Medical Condition: Yes Differential Diagnosis Differential Diagnosis: UTI versus gross hematuria versus ACS versus musculoskeletal shoulder pain Lab Data Lab results reviewed: Yes I reviewed the patient's lab results. Result diagrams: 12/07/17 14:45 12/07/17 14:45 Lab Results 12/07/17 12/07/17 12/07/17 Range/Units 14:45 14:45 14:45 WBC 7.2 (4.0-11.0) th/mm3 RBC 4.54 (4.50-5.90) mil/mm3 Hgb 14.7 (13.0-17.0) gm/dL Hct 42.8 (39.0-51.0) % MCV 94.1 (80.0-100.0) fL MCH 32.5 (27.0-34.0) pg MCHC 34.5 (32.0-36.0) % RDW 14.8 (11.6-17.2) % Plt Count 256 (150-450) th/mm3 MPV 7.5 (7.0-11.0) fL Neut % (Auto) 58.7 (16.0-70.0) % Lymph % (Auto) 22.5 (9.0-44.0) % [place] % (Auto) 14.0 H (0.0-8.0) % Eos % (Auto) 4.1 H (0.0-4.0) % Baso % (Auto) 0.7 (0.0-2.0) % Neut # (Auto) 4.2 (1.8-7.7) th/mm3 Lymph # (Auto) 1.6 (1.0-4.8) th/mm3 [place] # (Auto) 1.0 H (0.0-0.9) th/mm3 Eos # (Auto) 0.3 (0.0-0.4) th/mm3 Baso # (Auto) 0.1 (0.0-0.2) th/mm3 WBC Differential . Differential Comment Auto diff final Sodium 137 (136-145) meq/L Potassium 4.0 (3.5-5.1) meq/L Chloride 104 (98-107) meq/L Carbon Dioxide 25.0 (21.0-32.0) meq/L Anion Gap 8 (5-15) meq/L BUN 11 (7-18) mg/dL Creatinine 1.04 (0.60-1.30) mg/dL Estimated GFR 72 L (>89) mL/min Random Glucose 98 (74-106) mg/dL Calcium 8.1 L (8.5-10.1) mg/dL Total Bilirubin 0.3 (0.2-1.0) mg/dL AST 25 (15-37) U/L ALT 22 (12-78) U/L Alkaline Phosphatase 82 (45-117) U/L Troponin I Less than 0.02 L (0.02-0.05) ng/mL Total Protein 8.0 (6.4-8.2) g/dL Albumin 3.3 L (3.4-5.0) g/dL Urine Color Red (Yellw/Straw) Urine Clarity Hazy H (Clear) Urine pH 6.0 (5.0-8.5) Ur Specific [place] 1.009 (1.002-1.035) Urine Protein 100 H (Neg-Trace) mg/dL Urine Glucose (UA) 50 (Negative) mg/dL Urine Ketones Negative (Negative) mg/dL Urine Occult Blood Moderate H (Negative) Urine Nitrate Negative (Negative) Urine Bilirubin Negative (Negative) Urine Urobilinogen Less than 2 (Less than 2) mg/dL Ur Leukocyte Esterase Negative (Negative) Urine RBC (0-3) /hpf Urine WBC 24 H (0-5) /hpf Urine Bacteria Occasional H (None) /hpf Urine Mucus Few H (Occasional) /lpf Micro UA Comment Culture indicated Ur Microscopic Review Not Reportable Urine Culture Comments Culture indicated Imaging Data Attestation: I personally reviewed and interpreted this imaging study as follows : Radiologist's impression: Chest X-Ray 12/07/17 14:39 CONCLUSION: 1. No acute cardiopulmonary disease. 2. Degenerative changes and scoliosis of the thoracic spine. ECG Data Attestation: I personally reviewed and interpreted this ECG as follows: Interpretation: EKG shows sinus rhythm at a rate of 83 bpm with occasional PVCs. No signs of acute ST elevations or depressions. Discharge Plan Discharge Details Anticipated Discharge Date: 12/07/17 Physicians Team ED Provider: Tony Doherty Primary Care Provider: Primary Care Trupti Brenner Rxs /Orders / Referrals /Forms Prescriptions: No Action No Known Home Medications RF: 0 Status ED Status: Admitted Patient
[2017-12-07 15:08] LABS: Baso # (Auto) 0.1 th/mm3 (0.0-0.2); Baso % (Auto) 0.7 % (0.0-2.0); Eos # (Auto) 0.3 th/mm3 (0.0-0.4); Eos % (Auto) 4.1 % (0.0-4.0); Hematocrit 42.8 % (39.0-51.0); Hemoglobin 14.7 gm/dL (13.0-17.0); Lymph # (Auto) 1.6 th/mm3 (1.0-4.8); Lymph % (Auto) 22.5 % (9.0-44.0); Mean Corpuscular HGB Conc 34.5 % (32.0-36.0); Mean Corpuscular Hemoglobin 32.5 pg (27.0-34.0); Mean Corpuscular Volume 94.1 fL (80.0-100.0); Mean Platelet Volume 7.5 fL (7.0-11.0); Neut # (Auto) 4.2 th/mm3 (1.8-7.7); Neut % (Auto) 58.7 % (16.0-70.0); Platelet Count 256 th/mm3 (150-450); Red Blood Count 4.54 mil/mm3 (4.50-5.90); Red Cell Distribution Width 14.8 % (11.6-17.2); White Blood Count 7.2 th/mm3 (4.0-11.0)
[2017-12-07 15:14] LABS: Bacteria,Urine Occasional /hpf; Bilirubin,Urine Negative (Negative); Clarity,Urine Hazy (Clear); Color,Urine Red (Yellw/Straw); Glucose,Urine (UA) 50 mg/dL (Negative); Leukocyte Esterase,Urine Negative (Negative); Mucus,Urine Few /lpf (Occasional); Nitrite,Urine Negative (Negative); Specific Gravity,Urine 1.009 (1.002-1.035)
--- NOTE | 2017-12-07 15:25 | XR ---
EXAM DATE: 12/07/2017 2:39 PM EDT AGE/SEX: 62 years / Male INDICATIONS: Bilateral foot numbness, swollen prostate, hematuria, left arm pain and left chest pain and pressure. CLINICAL DATA: This is the patient's initial encounter. Patient reports that signs and symptoms have been present for 2 days and indicates a pain score of 4/10. MEDICAL/SURGICAL HISTORY: None. None. COMPARISON: Chest x-ray dated 04/26/2014.. FINDINGS: A single AP view of the chest demonstrates the lungs to be symmetrically aerated without evidence of mass, infiltrate or effusion. The cardiomediastinal contours are unremarkable. Degenerative changes and scoliosis of the thoracic spine are noted. CONCLUSION: 1. No acute cardiopulmonary disease. 2. Degenerative changes and scoliosis of the thoracic spine. Electronically signed by: Rah Moore MD 12/07/2017 3:23 PM EDT
[2017-12-07 15:33] LABS: Alanine Aminotransferase 22 U/L (12-78); Albumin 3.3 g/dL (3.4-5.0); Anion Gap 8 meq/L (5-15); Aspartate Aminotransferase 25 U/L (15-37); Blood Urea Nitrogen 11 mg/dL (7-18); Calcium 8.1 mg/dL (8.5-10.1); Chloride 104 meq/L (98-107); Glomerular Filtration Rate 72 mL/min (>89); Glucose,Random 98 mg/dL (74-106); Sodium 137 meq/L (136-145)
[2017-12-07 15:37] LABS: Alkaline Phosphatase 82 U/L (45-117)
[2017-12-07] MEDS ORDERED: Aspirin 325 MG Tablet PO ONE (16:43)
--- NOTE | 2017-12-07 17:19 | P.HPIM ---
History of Present Illness Primary Care Physician: No Primary Care Physician History of Present Illness: This patient is a 62-year-old male with no follow-up with a primary care doctor. The patient lives at home with 2 roommates and he does not take care of himself very well. He does not take any medications and admits to an extensive tobacco smoking history one pack per day since the age of 16. He also drinks approximately a sixpack of beer every day. He presents to the emergency department today with complaints of chest pain. Chest pain initially occurred while the patient was ambulating and was radiating to his left upper extremity. He has not experienced this type of pain before. He says the chest pain is not necessarily associated with exertion. He has also been having hematuria over the past 10 days and has slightly gotten worse today. Because of his symptoms he came into the emergency department for evaluation. The patient denied having any shortness of breath, no diarrhea, no nausea, no vomiting, no fevers or chills. Past medical history the patient does not have any known diagnosis. Surgical history appendectomy nearly 30 years ago Family history significant for prostate cancer in his father, he says his mother also had cancer but does not remember what kind. Social history the patient admits to smoking tobacco 1 pack/day since the age of 16, drinks approximately 6 beers per day. Review of Systems All other systems reviewed negative except as stated in HPI PMFSH - History History Provided By: Patient - Surgical History Surgical History: Surgical History (Last Reviewed 12/07/17 @ 14:41 by Tony Doherty MD) Hx of appendectomy - Tobacco History Second Hand Smoke Exposure: No Tobacco Use In Past 30 Days: Yes Smoking Status: Current every day smoker Tobacco Type: Cigarettes - Alcohol History How Often Do You Have a Drink Containing Alcohol: 4 or more times a week - Substance Use History Substance History: No History of Abuse - Travel History Recent Travel in the [place] Within the Last 8 Weeks: No Recent Travel Out of the Country Within the Last 8 Weeks: No - Immunization History Tetanus Immunization: >5 Years Medications and Allergies Active Medications: Active Medications Aspirin (Aspirin Chew) 81 mg PO DAILY [facility] Atorvastatin Calcium (Lipitor) 40 mg PO HS [facility] Sodium Chloride (Ns Inj) 1,000 mls @ 100 mls/hr IV.CONT .Q10H [facility] Metoprolol Tartrate (Lopressor) 12.5 mg PO BID QI Morphine Sulfate (Morphine Inj) 2 mg IV.PUSH Q4H PRN PRN Reason: CHEST PAIN Nitroglycerin (Nitrostat Sl) 0.4 mg SL Q5M PRN PRN Reason: CHEST PAIN Sodium Chloride (Ns Flush) 2 ml IV.FLUSH UNSCH PRN PRN Reason: FLUSH AFTER USING IV ACCESS Allergies Allergy/AdvReac Type Severity Reaction Status Date / Time penicillin G Allergy Severe Rash Verified 12/07/17 14:37 Home Medications Medication Instructions Recorded Confirmed Type No Known Home Medications 12/07/17 12/07/17 History Exam Vital signs: Vital Signs 12/07/17 14:29 12/07/17 14:41 12/07/17 14:47 Temperature 97.9 F Pulse Rate 86 82 Respiratory Rate 16 22 Blood Pressure 130/72 129/70 Pulse Oximetry 95 94 L 94 L 12/07/17 16:10 Temperature Pulse Rate 75 Respiratory Rate 19 Blood Pressure 156/91 H Pulse Oximetry 99 Intake & Output 12/06/17 12/07/17 12/07/17 18:59 06:59 18:59 Weight 111.13 kg Narrative: General patient in no acute distress HEENT extraocular movements are intact, clear oropharyngeal mucosa, no JVD Cardiovascular S1-S2 audible, RRR, no murmurs rubs or gallops, no chest pain on palpation. Respiratory clear to auscultation bilaterally Abdomen soft, nontender, nondistended, normal bowel sounds Extremities no edema 2+ distal pulses in bilateral upper and lower extremities Neuro cranial nerves II through XII intact Results - Labs CBC & Chem 7: 12/07/17 14:45 12/07/17 14:45 Labs: Short CBC 12/07/17 Range/Units 14:45 WBC 7.2 (4.0-11.0) th/mm3 Hgb 14.7 (13.0-17.0) gm/dL Hct 42.8 (39.0-51.0) % Plt Count 256 (150-450) th/mm3 BMP 12/07/17 14:45 Sodium 137 Potassium 4.0 Chloride 104 Carbon Dioxide 25.0 BUN 11 Creatinine 1.04 Calcium 8.1 L Cardiac Enzymes 12/07/17 Range/Units 14:45 Troponin I Less than 0.02 L (0.02-0.05) ng/mL Liver Function 12/07/17 Range/Units 14:45 Total Bilirubin 0.3 (0.2-1.0) mg/dL AST 25 (15-37) U/L ALT 22 (12-78) U/L Alkaline Phosphatase 82 (45-117) U/L Albumin 3.3 L (3.4-5.0) g/dL Urine 12/07/17 Range/Units 14:45 Urine Color Red (Yellw/Straw) Urine Clarity Hazy H (Clear) Urine pH 6.0 (5.0-8.5) Ur Specific [place] 1.009 (1.002-1.035) Urine Protein 100 H (Neg-Trace) mg/dL Urine Glucose (UA) 50 (Negative) mg/dL - Imaging Impressions Chest X-Ray 12/07/17 14:39 CONCLUSION: 1. No acute cardiopulmonary disease. 2. Degenerative changes and scoliosis of the thoracic spine. Caprini VTE Risk Assessment Caprini VTE Risk Assessment: No/Low Risk (score <= 1) (Patient currently has hematuria.) Caprini Risk Assessment Model: Point Value = 1 Point Value = 2 Point Value = 3 Point Value = 5 Age 41-60 Minor surgery BMI > 25 kg/m2 Swollen legs Varicose veins or History of unexplained or recurrent spontaneous Oral contraceptives or hormone replacement Sepsis (< 1 month) Serious lung disease, including pneumonia (< 1 month) Abnormal pulmonary function Acute myocardial infarction Congestive heart failure (< 1 month) History of inflammatory bowel disease Medical patient at bed rest Age 61-74 Arthroscopic surgery Major open surgery (> 45 min) Laparoscopic surgery (> 45 min) Malignancy Confined to bed (> 72 hours) Immobilizing plaster cast Central venous access Age >= 75 History of VTE Family history of VTE Factor V Leiden Prothrombin [id number] Lupus anticoagulant Anticardiolipin antibodies Elevated serum homocysteine Heparin-induced thrombocytopenia Other congenital or acquired thrombophilia Stroke (< 1 month) Elective arthroplasty Hip, pelvis, or leg fracture Acute spinal cord injury (< 1 month) Prophylaxis Regimen: Total Risk Factor Score Risk Level Prophylaxis Regimen 0-1 Low Early ambulation 2 Moderate Order ONE of the following: *Sequential Compression Device (SCD) *Heparin 5000 units SQ BID 3-4 Higher Order ONE of the following medications: *Heparin 5000 units SQ TID *Enoxaparin/Lovenox 40 mg SQ daily (WT < 150 kg, CrCl > 30 mL/min) *Enoxaparin/Lovenox 30 mg SQ daily (WT < 150 kg, CrCl > 10-29 mL/min) *Enoxaparin/Lovenox 30 mg SQ BID (WT < 150 kg, CrCl > 30 mL/min) AND/OR *Sequential Compression Device (SCD) 5 or more Highest Order ONE of the following medications: *Heparin 5000 units SQ TID (Preferred with Epidurals) *Enoxaparin/Lovenox 40 mg SQ daily (WT < 150 kg, CrCl > 30 mL/min) *Enoxaparin/Lovenox 30 mg SQ daily (WT < 150 kg, CrCl > 10-29 mL/min) *Enoxaparin/Lovenox 30 mg SQ BID (WT < 150 kg, CrCl > 30 mL/min) AND *Sequential Compression Device (SCD) Assessment and Plan - Plan This patient is a 62-year-old male with no follow-up with a primary care doctor. The patient lives at home with 2 roommates and he does not take care of himself very well. He does not take any medications and admits to an extensive tobacco smoking history one pack per day since the age of 16. He also drinks approximately a sixpack of beer every day. He presents to the emergency department today with complaints of chest pain. Chest pain initially occurred while the patient was ambulating and was radiating to his left upper extremity. He has not experienced this type of pain before. He says the chest pain is not necessarily associated with exertion. He has also been having hematuria over the past 10 days and has slightly gotten worse today. Because of his symptoms he came into the emergency department for evaluation. 1. Chest pain concern for acute coronary syndrome Patient is currently chest pain-free EKG shows normal sinus rhythm no acute ST or T wave changes Hemoglobin is stable. The patient is having some hematuria however given the patient's chest pain he will be given aspirin. Start statin and a beta-zaheer. We will follow up 2 more sets of troponins, cardiac enzymes, and EKGs. Initial set of cardiac enzymes and troponins are negative. Nitroglycerin as needed for chest pain. Cardiac stress test tomorrow. 2. Hematuria The patient has an extensive tobacco smoking history. He has been started on IV fluids. Hemoglobin is stable. We will follow-up in a.m. labs to monitor his hemoglobin level. The patient will be given aspirin given his chest pain, if there is a significant change in the patient's hemoglobin level we may consider stopping the aspirin. Ultrasound of the bladder is has been ordered. We will follow-up imaging. 3. Alcohol abuse/tobacco smoking The patient was counseled on his tobacco and alcohol abuse. He will be given multivitamin, thiamine, folate. He will also be given a nicotine patch. No pharmacotherapy for DVT prophylaxis given the patient's current hematuria. Patient is ambulatory.
[2017-12-07] MEDS: Sod Chloride 0.9% Inj 1,000 ML IV.CONT SCH (17:45)
--- NOTE | 2017-12-07 19:25 | ECG ---
Date Performed: 12/07/2017 Time Performed: 14:38:04 PTAGE: 62 years EKG: Sinus rhythm WITH OCCASIONAL SUPRAVENTRICULAR PREMATURE COMPLEXES INCOMPLETE RIGHT BUNDLE BRANCH BLOCK BORDERLINE ECG NO PREVIOUS TRACING DOCTOR: Sasha Marinelli Interpretating Date/Time 12/07/2017 19:25:27
[2017-12-07 21:55] LABS: Creatine Kinase 91 U/L (39-308)
--- NOTE | 2017-12-07 22:11 | US ---
EXAM DATE: 12/07/2017 12:00 AM EDT AGE/SEX: 62 years / Male INDICATIONS: Hematuria. CLINICAL DATA: This is the patient's initial encounter. Patient reports that signs and symptoms have been present for 2 days and indicates a pain score of 0/10. MEDICAL/SURGICAL HISTORY: None. Appendectomy. COMPARISON: No prior exams available for comparison. MEASUREMENTS: Right Kidney:__12.0 x 5.5 x 5.1 cm Left Kidney:__11.6 x 6.5 x 5.7 cm FINDINGS: Right Kidney: Normal echotexture and cortical thickness. No mass or hydronephrosis. Left Kidney: Normal echotexture and cortical thickness. No mass or hydronephrosis. Bladder: There is a bladder mass measuring up to 5.9 x 5.8 x 8.3 cm likely with associated hemorrhage . Other: None. CONCLUSION: 1. Bladder mass measuring up to 8.3 x 5.9 cm. Differential diagnosis includes neoplasm with hemorrha ge. Electronically signed by: Abhijit Hardy MD 12/07/2017 10:10 PM EDT
[2017-12-07] MEDS: Metoprolol Tartrate 25 MG Tablet PO SCH (22:20)
[2017-12-08 05:08] LABS: Creatine Kinase 75 U/L (39-308)
[2017-12-08] MEDS: Sod Chloride 0.9% Inj 1,000 ML IV.CONT SCH ×3 (07:17→20:42)
[2017-12-08] MEDS: Folic Acid 1 MG Tablet PO SCH (07:20)
[2017-12-08] MEDS ORDERED: LORazepam 1 MG Tablet PO PRN (08:04)
[2017-12-08] MEDS: Metoprolol Tartrate 25 MG Tablet PO SCH ×2 (09:45→20:44)
[2017-12-08] MEDS ORDERED: Regadenoson Inj 0.4 MG/5 ML Syringe IV.PUSH ONE (10:44)
--- NOTE | 2017-12-08 12:04 | NM ---
EXAM DATE: 12/08/2017 10:24 AM EDT AGE/SEX: 62 years / Male INDICATIONS:Myocardial infarction. . Mid chest pain for one day. CLINICAL DATA: This is the patient's initial encounter. Patient reports that signs and symptoms have been present for 1 day and indicates a pain score of 7/10. MEDICAL/SURGICAL HISTORY: None. Appendectomy. COMPARISON: No prior exams available for comparison. No external comparison. DOSE: 10.0 mCi Tc 99m Myoview at rest 30.0 mCi [id number] at stress 0.4 mg Lexiscan STRESS SYMPTOMS: Short of breath. EJECTION FRACTION: 35 % TECHNIQUE: The patient underwent pharmacologic stress with infusion of prescribed dose. Continuous ECG tracing was monitored during stress. Gated SPECT imaging was performed after stress and conventi onal SPECT imaging was performed at rest. The examination was performed on a SPECT/CT scanner, both attenuation and non-corrected datasets were reviewed. FINDINGS: Distribution: The maximum perfused segment at stress is in the wall. Perfusion Study: The pattern of perfusion at stress is within normal limits. Gated Study: There are intact wall motion and wall thickening with apparent mild global hypokinesis. The ejection fraction is calculated at 35%. RISK CATEGORY: Low (<1% Annual Motality Rate) CONCLUSION: 1. No fixed or reversible wall defect to suggest ischemia or infarction. 2. Decreased calculated ejection fraction of 35% with apparent mild global hypokinesis. This could i ndicate a cardiomyopathy. Electronically signed by: Keith De Anda MD 12/08/2017 12:03 PM EDT
--- NOTE | 2017-12-08 12:38 | P.PNIM ---
Subjective Interval history: Follow up: chest pain and hematuria Patient reports chest pain resolved through the night No longer having chest pain Patient continues to have hematuria Physical Exam Vital signs: Vital Signs 12/07/17 14:29 12/07/17 14:41 12/07/17 14:47 Temperature 97.9 F Pulse Rate 86 82 Respiratory Rate 16 22 Blood Pressure 130/72 129/70 Pulse Oximetry 95 94 L 94 L 12/07/17 16:10 12/07/17 17:46 12/07/17 20:00 Temperature 97.7 F Pulse Rate 75 73 82 Respiratory Rate 19 22 18 Blood Pressure 156/91 H 154/80 H 159/92 H Pulse Oximetry 99 98 97 12/08/17 00:00 12/08/17 04:00 12/08/17 08:00 Temperature 98.3 F 97.4 F L 97.8 F Pulse Rate 87 79 75 Respiratory Rate 18 18 20 Blood Pressure 149/85 H 149/94 H 162/102 H Pulse Oximetry 96 95 97 Intake & Output 12/07/17 12/08/17 12/08/17 18:59 06:59 18:59 Intake Total 1000 / 1000 Output Total 850 / 850 Balance 150 / 150 Weight 111.13 kg Intake: IV 1000 / 1000 NS Inj 1,000 ML @ 100 mls/hr IV 1000 / 1000 .CONT .Q10H [facility] Rx#:[id number] Output: Urine 850 / 850 Narrative: General patient in no acute distress HEENT extraocular movements are intact, clear oropharyngeal mucosa, no JVD Cardiovascular S1-S2 audible, RRR, Respiratory clear to auscultation bilaterally Abdomen soft, nontender, nondistended, normal bowel sounds Extremities no edema 2+ distal pulses in bilateral upper and lower extremities Neuro no focal deficits noted Results - Labs CBC & Chem 7: 12/07/17 14:45 12/07/17 14:45 Laboratory Results - last 24 hr 12/07/17 12/07/17 12/07/17 14:45 14:45 14:45 WBC 7.2 RBC 4.54 Hgb 14.7 Hct 42.8 MCV 94.1 MCH 32.5 MCHC 34.5 RDW 14.8 Plt Count 256 MPV 7.5 Neut % (Auto) 58.7 Lymph % (Auto) 22.5 Gosper % (Auto) 14.0 H Eos % (Auto) 4.1 H Baso % (Auto) 0.7 Neut # (Auto) 4.2 Lymph # (Auto) 1.6 Gosper # (Auto) 1.0 H Eos # (Auto) 0.3 Baso # (Auto) 0.1 WBC Differential . Differential Comment Auto diff final Sodium 137 Potassium 4.0 Chloride 104 Carbon Dioxide 25.0 Anion Gap 8 BUN 11 Creatinine 1.04 Estimated GFR 72 L Random Glucose 98 Calcium 8.1 L Total Bilirubin 0.3 AST 25 ALT 22 Alkaline Phosphatase 82 Total Creatine Kinase Troponin I Less than 0.02 L Total Protein 8.0 Albumin 3.3 L Urine Color Red Urine Clarity Hazy H Urine pH 6.0 Ur Specific Dorothy 1.009 Urine Protein 100 H Urine Glucose (UA) 50 Urine Ketones Negative Urine Occult Blood Moderate H Urine Nitrate Negative Urine Bilirubin Negative Urine Urobilinogen Less than 2 Ur Leukocyte Esterase Negative Urine RBC Urine WBC 24 H Urine Bacteria Occasional H Urine Mucus Few H Micro UA Comment Culture indicated Ur Microscopic Review Not Reportable Urine Culture Comments Culture indicated 12/07/17 12/08/17 20:59 04:09 WBC RBC Hgb Hct MCV MCH MCHC RDW Plt Count MPV Neut % (Auto) Lymph % (Auto) Gosper % (Auto) Eos % (Auto) Baso % (Auto) Neut # (Auto) Lymph # (Auto) Gosper # (Auto) Eos # (Auto) Baso # (Auto) WBC Differential Differential Comment Sodium Potassium Chloride Carbon Dioxide Anion Gap BUN Creatinine Estimated GFR Random Glucose Calcium Total Bilirubin AST ALT Alkaline Phosphatase Total Creatine Kinase 91 75 Troponin I Less than 0.02 L Less than 0.02 L Total Protein Albumin Urine Color Urine Clarity Urine pH Ur Specific Dorothy Urine Protein Urine Glucose (UA) Urine Ketones Urine Occult Blood Urine Nitrate Urine Bilirubin Urine Urobilinogen Ur Leukocyte Esterase Urine RBC Urine WBC Urine Bacteria Urine Mucus Micro UA Comment Ur Microscopic Review Urine Culture Comments Microbiology 12/07/17 14:45 Clean Catch Urine Urine Culture - Preliminary No growth in 24 hours - Imaging Impressions Abdomen/Bladder Ultrasound 12/07/17 00:00 CONCLUSION: 1. Bladder mass measuring up to 8.3 x 5.9 cm. Differential diagnosis includes neoplasm with hemorrhage. Chest X-Ray 12/07/17 14:39 CONCLUSION: 1. No acute cardiopulmonary disease. 2. Degenerative changes and scoliosis of the thoracic spine. Myocardial Perfusion Scan Nuc Med 12/08/17 00:00 CONCLUSION: 1. No fixed or reversible wall defect to suggest ischemia or infarction. 2. Decreased calculated ejection fraction of 35% with apparent mild global hypokinesis. This could indicate a cardiomyopathy. Assessment and Plan - Assessment (1) Atypical chest pain Code(s): R07.89 - Other chest pain Status: Acute Plan: This patient is a 62-year-old male with no follow-up with a primary care doctor. The patient lives at home with 2 roommates and he does not take care of himself very well. He does not take any medications and admits to an extensive tobacco smoking history one pack per day since the age of 16. He also drinks approximately a sixpack of beer every day. He presents to the emergency department today with complaints of chest pain. Chest pain initially occurred while the patient was ambulating and was radiating to his left upper extremity. He has not experienced this type of pain before. He says the chest pain is not necessarily associated with exertion. He has also been having hematuria over the past 10 days and has slightly gotten worse today. Because of his symptoms he came into the emergency department for evaluation. 1. Chest pain concern for acute coronary syndrome Patient is currently chest pain-free EKG shows normal sinus rhythm no acute ST or T wave changes beta-zaheer. troponin < 0.02 x 3 Nitroglycerin as needed for chest pain. Lexiscan reviewed and reveals: 1. No fixed or reversible wall defect to suggest ischemia or infarction. 2. Decreased calculated ejection fraction of 35% with apparent mild global hypokinesis. This could indicate a cardiomyopathy. 2D echocardiogram ordered and pending Hold aspirin due to hematuria 2. Hematuria The patient has an extensive tobacco smoking history. He has been started on IV fluids. Hemoglobin is stable. recheck CBC pending Ultrasound of the bladder reviewed and reveals: Bladder mass measuring up to 8.3 x 5.9 cm. Differential diagnosis includes neoplasm with hemorrhage. Discussed results with patient Consult urology 3. Alcohol abuse/tobacco smoking The patient was counseled on his tobacco and alcohol abuse. He will be given multivitamin, thiamine, folate. CIWA protocol He will also be given a nicotine patch, dose increased to 21 mg per patient request No pharmacotherapy for DVT prophylaxis given the patient's current hematuria. Patient is ambulatory. Discussed case with patient, nurse and Dr. Agarwal
[2017-12-08 13:38] LABS: Baso # (Auto) 0.1 th/mm3 (0.0-0.2); Baso % (Auto) 0.7 % (0.0-2.0); Eos # (Auto) 0.1 th/mm3 (0.0-0.4); Eos % (Auto) 1.2 % (0.0-4.0); Hematocrit 43.2 % (39.0-51.0); Hemoglobin 14.9 gm/dL (13.0-17.0); Lymph # (Auto) 0.8 th/mm3 (1.0-4.8); Lymph % (Auto) 10.1 % (9.0-44.0); Mean Corpuscular HGB Conc 34.5 % (32.0-36.0); Mean Corpuscular Volume 92.8 fL (80.0-100.0); Mean Platelet Volume 7.7 fL (7.0-11.0); Mono # (Auto) 0.9 th/mm3 (0.0-0.9); Mono % (Auto) 10.8 % (0.0-8.0); Neut # (Auto) 6.1 th/mm3 (1.8-7.7); Neut % (Auto) 77.2 % (16.0-70.0); Platelet Count 220 th/mm3 (150-450); Red Blood Count 4.66 mil/mm3 (4.50-5.90); Red Cell Distribution Width 14.5 % (11.6-17.2); White Blood Count 7.9 th/mm3 (4.0-11.0)
--- NOTE | 2017-12-08 17:08 | P.CONURO ---
History of Present Illness Service: urology Consult date: 12/08/17 Reason for Consult: hematuria Primary Care Provider: No Primary Care Physician Chief Complaint: hematuria History of Present Illness: 62yo male currently admitted due to chest pain seen in consultation for hematuria. Patient reports he has now had blood in the urine for sefveral days. No issues voiding, however dark blood in appearance. He has had blood in the urine before, starting over 1 yr ago, and has been intermittent and short periods of time. No pain with voids. He is a current smoker. Positive family history of malignancy. He does report having a "swollen Prostate". Ultrasound identified a possible bladder mass. Review of Systems All other systems reviewed negative except as stated in HPI [facility] - History History Provided By: Patient - Surgical History Surgical History: Surgical History (Last Reviewed 12/07/17 @ 14:41 by Tony Doherty MD) Hx of appendectomy - Tobacco History Second Hand Smoke Exposure: No Tobacco Use In Past 30 Days: Yes Smoking Status: Current every day smoker Tobacco Type: Cigarettes - Alcohol History How Often Do You Have a Drink Containing Alcohol: 4 or more times a week - Substance Use History Substance History: No History of Abuse - Travel History Recent Travel in the [place] Within the Last 8 Weeks: No Recent Travel Out of the Country Within the Last 8 Weeks: No - Immunization History Tetanus Immunization: >5 Years Medications and Allergies Active Medications: Active Medications Aspirin (Aspirin Chew) 81 mg PO DAILY [facility] Last Admin: 12/08/17 09:45 Dose: 81 mg Atorvastatin Calcium (Lipitor) 40 mg PO HS [facility] Last Admin: 12/07/17 22:20 Dose: 40 mg Flumazenil (Romazecon Inj) 0.2 mg IV.PUSH Q1M PRN PRN Reason: OVERSEDATION Folic Acid (Folic Acid) 1 mg PO DAILY@0700 [facility] Last Admin: 12/08/17 07:20 Dose: 1 mg Sodium Chloride (Ns Inj) 1,000 mls @ 100 mls/hr IV.CONT .Q10H [facility] Last Admin: 12/08/17 16:00 Dose: Not Given Lorazepam (Ativan) 1 mg PO Q4H PRN PRN Reason: for CIWA 8-10 Lorazepam (Ativan) 2 mg PO Q2H PRN PRN Reason: for CIWA 11-14 Lorazepam (Ativan Inj) 2 mg IV.PUSH Q2H PRN PRN Reason: for CIWA 11-14 Lorazepam (Ativan Inj) 2 mg IV.PUSH Q1H PRN PRN Reason: for CIWA 15-20 Lorazepam (Ativan Inj) 1 mg IV.PUSH Q4H PRN PRN Reason: for CIWA 8-10 Lorazepam (Ativan Inj) 2 mg IV.PUSH Q15M PRN PRN Reason: for CIWA > 20 Metoprolol Tartrate (Lopressor) 12.5 mg PO BID [facility] Last Admin: 12/08/17 09:45 Dose: 12.5 mg Miscellaneous (Pill Splitter) 1 each OTHER UNSCH PRN PRN Reason: SEE LABEL COMMENTS Morphine Sulfate (Morphine Inj) 2 mg IV.PUSH Q4H PRN PRN Reason: CHEST PAIN Multivitamins (Theragran) 1 tab PO DAILY@0700 [facility] Last Admin: 12/08/17 07:20 Dose: 1 tab Nicotine (Habitrol 21 Mg Patch.24 Hr) 1 patch T-DERMAL DAILY [facility] Last Admin: 12/08/17 13:10 Dose: 1 patch Nitroglycerin (Nitrostat Sl) 0.4 mg SL Q5M PRN PRN Reason: CHEST PAIN Patch Removal (Remove Old Patch) 1 each T-DERMAL DAILY [facility] Sodium Chloride (Ns Flush) 2 ml IV.FLUSH UNSCH PRN PRN Reason: FLUSH AFTER USING IV ACCESS Thiamine HCl (Vitamin B1) 100 mg PO DAILY@0700 [facility] Last Admin: 12/08/17 07:20 Dose: 100 mg Allergies Allergy/AdvReac Type Severity Reaction Status Date / Time penicillin G Allergy Severe Rash Verified 12/07/17 14:37 Home Medications Medication Instructions Recorded Confirmed Type No Known Home Medications 12/07/17 12/07/17 History Physical Exam Vital Signs - 24 hr 12/07/17 17:46 12/07/17 20:00 12/08/17 00:00 Temperature 97.7 F 98.3 F Pulse Rate 73 82 87 Respiratory Rate 22 18 18 Blood Pressure 154/80 H 159/92 H 149/85 H Pulse Oximetry 98 97 96 12/08/17 04:00 12/08/17 08:00 12/08/17 09:00 Temperature 97.4 F L 97.8 F Pulse Rate 79 75 81 Respiratory Rate 18 20 Blood Pressure 149/94 H 162/102 H Pulse Oximetry 95 97 12/08/17 12:00 Temperature 97.8 F Pulse Rate 72 Respiratory Rate 20 Blood Pressure 138/91 H Pulse Oximetry 97 Physical Exam: GENERAL: This is a well-nourished, well-developed patient, in no apparent distress. SKIN: No rashes, ecchymoses or lesions. Cool and dry. HEAD: Atraumatic. Normocephalic. EYES: Extraocular motions intact. No scleral icterus. No injection or drainage. ENT: Nose without bleeding, purulent drainage Airway patent. NECK: Trachea midline. CARDIOVASCULAR: Normal pulse RESPIRATORY: Nonlabored GASTROINTESTINAL: Abdomen soft, non-tender, nondistended. MUSCULOSKELETAL: Extremities without clubbing, cyanosis, or edema. NEUROLOGICAL: Awake and alert. . Motor and sensory grossly within normal limits. Normal speech. Lab results reviewed: Yes Laboratory Results - last 24 hr 12/07/17 12/08/17 12/08/17 20:59 04:09 13:20 WBC 7.9 RBC 4.66 Hgb 14.9 Hct 43.2 MCV 92.8 MCH 32.0 MCHC 34.5 RDW 14.5 Plt Count 220 MPV 7.7 Neut % (Auto) 77.2 H Lymph % (Auto) 10.1 Morrill % (Auto) 10.8 H Eos % (Auto) 1.2 Baso % (Auto) 0.7 Neut # (Auto) 6.1 Lymph # (Auto) 0.8 L [place]rill # (Auto) 0.9 Eos # (Auto) 0.1 Baso # (Auto) 0.1 WBC Differential . Differential Comment Auto diff final Total Creatine Kinase 91 75 Troponin I Less than 0.02 L Less than 0.02 L Microbiology 12/07/17 14:45 Urine Culture - Preliminary Clean Catch Urine No growth in 24 hours Result Diagrams: 12/08/17 13:20 12/07/17 14:45 Personally reviewed images: Yes Imaging: ITS Impressions Abdomen/Bladder Ultrasound 12/07/17 00:00 CONCLUSION: 1. Bladder mass measuring up to 8.3 x 5.9 cm. Differential diagnosis includes neoplasm with hemorrhage. Chest X-Ray 12/07/17 14:39 CONCLUSION: 1. No acute cardiopulmonary disease. 2. Degenerative changes and scoliosis of the thoracic spine. Myocardial Perfusion Scan Nuc Med 12/08/17 00:00 CONCLUSION: 1. No fixed or reversible wall defect to suggest ischemia or infarction. 2. Decreased calculated ejection fraction of 35% with apparent mild global hypokinesis. This could indicate a cardiomyopathy. Assessment and Plan - Assessment (1) Hematuria Code(s): R31.9 - Hematuria, unspecified Status: Acute - Plan -Will obtain CT urogram to evaluate the bladder mass in more detail and rule out any upper tract pathology -Patient voiding well, no need for catheterization -Once patient is clear from a cardiac standpoint, he may be discharged with Urology followup in clinic to complete the hematuria evaluation with cystoscopy -Recommend patient establish with [id number] patient assistance program and [facility] for further management -Please call with questions
--- NOTE | 2017-12-08 20:35 | CT ---
EXAM DATE: 12/08/2017 7:57 PM EDT AGE/SEX: 62 years / Male INDICATIONS: Hematuria; rule out bladder mass. CLINICAL DATA: This is the patient's initial encounter. Patient reports that signs and symptoms have been present for 2 days and indicates a pain score of 0/10. MEDICAL/SURGICAL HISTORY: None. Appendectomy. RADIATION DOSE: 13.95 CTDI (mGy) COMPARISON: No prior exams available for comparison. TECHNIQUE: Pre-contrast images were obtained. Multiple contiguous helical axial images were then ob tained through the abdomen and pelvis following bolus infusion of 96 ml Omnipaque 350 (iohexol) nonio alireza water-soluble contrast and ingestion of dilute oral contrast as a single exam dose. No oral contr ast ingested. Using automated exposure control and adjustment of the mA and/or kV according to patien t size, radiation dose was kept as low as reasonably achievable to obtain optimal diagnostic quality images. DICOM format image data is available electronically for review and comparison. FINDINGS: There is a 9.2 x 6.1 cm mass in the bladder predominantly on the left side posteriorly resulting in a left-sided obstructive uropathy and mild left-sided hydronephrosis and ureteral dilatation. There is no right-sided hydronephrosis. Lung bases are clear. No acute findings in the liver, spleen, adrenals or pancreas. No calcified gallstones or biliary ductal dilatation. No free fluid. No bowel obstruction. There is a small fat-containing umbilical hernia. Bilateral pars defects present with a grade 1 anterolisthesis at the lumbosacral junction. CONCLUSION: 1. There is a 9.2 x 6.1 cm mass in the bladder predominantly on the left side with left-sided obstru ctive uropathy and hydronephrosis. Mass is likely neoplastic and contiguous with superior aspect of p rostate. Cannot exclude extravesical extension inferiorly. 2. 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 Small fat-containing umbilica l hernia Electronically signed by: Abhijit Hardy MD 12/08/2017 8:34 PM EDT
--- NOTE | 2017-12-08 22:16 | ECG ---
Date Performed: 12/07/2017 Time Performed: 22:55:03 PTAGE: 62 years EKG: Sinus rhythm WITH FREQUENT SUPRAVENTRICULAR PREMATURE COMPLEXES INCOMPLETE RIGHT BUNDLE BRANCH BLOCK ABNORMAL RHY THM ECG PREVIOUS TRACING : 12/07/2017 17.37 Since the previous tracing, no significant change noted DOCTOR: Sasha Marinelli Interpretating Date/Time 12/08/2017 22:13:56
--- NOTE | 2017-12-08 22:24 | ECG ---
Date Performed: 12/07/2017 Time Performed: 17:37:00 PTAGE: 62 years EKG: Sinus rhythm WITH SINUS ARRHYTHMIA INCOMPLETE RIGHT BUNDLE BRANCH BLOCK BORDERLINE ECG PREVIOUS TRACING : 12/07/2017 14.38 Since the previous tracing, no significant change noted DOCTOR: Sasha Marinelli Interpretating Date/Time 12/08/2017 22:23:07
[2017-12-09] MEDS: Sod Chloride 0.9% Inj 1,000 ML IV.CONT SCH ×4 (03:13→23:54)
[2017-12-09] MEDS: Folic Acid 1 MG Tablet PO SCH (06:32)
[2017-12-09 07:32] LABS: Baso % (Auto) 0.7 % (0.0-2.0); Eos # (Auto) 0.2 th/mm3 (0.0-0.4); Eos % (Auto) 2.8 % (0.0-4.0); Hemoglobin 14.2 gm/dL (13.0-17.0); Lymph # (Auto) 1.2 th/mm3 (1.0-4.8); Lymph % (Auto) 17.7 % (9.0-44.0); Mean Corpuscular HGB Conc 33.8 % (32.0-36.0); Mean Corpuscular Hemoglobin 31.8 pg (27.0-34.0); Mean Corpuscular Volume 93.9 fL (80.0-100.0); Mean Platelet Volume 8.2 fL (7.0-11.0); Mono # (Auto) 0.9 th/mm3 (0.0-0.9); Mono % (Auto) 12.9 % (0.0-8.0); Neut # (Auto) 4.4 th/mm3 (1.8-7.7); Neut % (Auto) 65.9 % (16.0-70.0); Platelet Count 229 th/mm3 (150-450); Red Blood Count 4.48 mil/mm3 (4.50-5.90); Red Cell Distribution Width 14.3 % (11.6-17.2); White Blood Count 6.6 th/mm3 (4.0-11.0)
[2017-12-09 07:53] LABS: Albumin 2.8 g/dL (3.4-5.0); Anion Gap 8 meq/L (5-15); Aspartate Aminotransferase 13 U/L (15-37); Blood Urea Nitrogen 12 mg/dL (7-18); Carbon Dioxide 26.1 meq/L (21.0-32.0); Chloride 100 meq/L (98-107); Glomerular Filtration Rate 78 mL/min (>89); Glucose,Random 102 mg/dL (74-106); Potassium 3.6 meq/L (3.5-5.1); Sodium 134 meq/L (136-145)
[2017-12-09 07:55] LABS: Alanine Aminotransferase 15 U/L (12-78)
[2017-12-09 07:57] LABS: Alkaline Phosphatase 76 U/L (45-117)
[2017-12-09] MEDS: Metoprolol Tartrate 25 MG Tablet PO SCH ×2 (09:10→20:55)
--- NOTE | 2017-12-09 10:57 | P.PN ---
Subjective Interval history: Follow up on patient with hematuria, chest pain. Patient seen and examined. Patient complains of cough with whitish sputum production. He reports recent treatment for PNA. He denies any dyspnea. He denies any fever or chills. He denies any chest pain, N/V or abdominal pain. Patient states he has urgency, sensation of incomplete emptying and low urine output since yesterday. He reports hematuria with blood clots yesterday. He states he has not been able to void well since yesterday. He says all thru the night he had the sensation to void but could only urinate small trickles. Physical Exam Vital signs: Vital Signs 12/08/17 12:00 12/08/17 16:00 12/08/17 16:17 Temperature 97.8 F 98.4 F Pulse Rate 72 73 83 Respiratory Rate 20 20 Blood Pressure 138/91 H 152/96 H Pulse Oximetry 97 98 12/08/17 20:00 12/09/17 00:00 12/09/17 04:00 Temperature 99.0 F 97.6 F 98.6 F Pulse Rate 78 69 67 Respiratory Rate 18 18 18 Blood Pressure 177/99 H 163/98 H 155/98 H Pulse Oximetry 97 97 97 12/09/17 08:00 Temperature 97.4 F L Pulse Rate 69 Respiratory Rate 18 Blood Pressure 170/91 H Pulse Oximetry 99 Intake & Output 12/08/17 12/09/17 12/09/17 18:59 06:59 18:59 Intake Total 1230 / 1230 1200 / 1200 Output Total 400 / 400 650 / 650 Balance 830 / 830 550 / 550 Intake: IV 750 / 750 1200 / 1200 NS Inj 1,000 ML @ 100 mls/hr IV 750 / 750 1200 / 1200 .CONT .Q10H [facility] Rx#:[id number] Oral 480 / 480 Output: Urine 400 / 400 650 / 650 Narrative: GENERAL: WDWN male patient, INAD. Awake and alert. SKIN: Warm and dry. No generalized rash. HEENT: Atraumatic. Normocephalic. Pupils equal and round. No scleral icterus. No injection or drainage. No nasal bleeding or discharge. Mucous membranes pink and moist. NECK: Trachea midline. CARDIOVASCULAR: Regular rate and rhythm. RESPIRATORY: No accessory muscle use. Clear to auscultation. Breath sounds equal bilaterally. GASTROINTESTINAL: Abdomen soft, non-tender, nondistended. +BS. MUSCULOSKELETAL: Extremities without clubbing, cyanosis, or edema. No obvious deformities. NEUROLOGICAL: Awake and alert. No obvious cranial nerve deficits. Motor grossly within normal limits. Able to move all extremities spontaneously. Normal speech. PSYCHIATRIC: Appropriate mood and affect, calm and cooperative. Results - Labs CBC & Chem 7: 12/09/17 05:35 12/09/17 03:35 Laboratory Results - last 24 hr 12/08/17 12/09/17 12/09/17 13:20 03:35 05:35 WBC 7.9 6.6 RBC 4.66 4.48 L Hgb 14.9 14.2 Hct 43.2 42.0 MCV 92.8 93.9 MCH 32.0 31.8 MCHC 34.5 33.8 RDW 14.5 14.3 Plt Count 220 229 MPV 7.7 8.2 Neut % (Auto) 77.2 H 65.9 Lymph % (Auto) 10.1 17.7 O'Brien % (Auto) 10.8 H 12.9 H Eos % (Auto) 1.2 2.8 Baso % (Auto) 0.7 0.7 Neut # (Auto) 6.1 4.4 Lymph # (Auto) 0.8 L 1.2 O'Brien # (Auto) 0.9 0.9 Eos # (Auto) 0.1 0.2 Baso # (Auto) 0.1 0.0 WBC Differential . . Differential Comment Auto diff final Auto diff final Sodium 134 L Potassium 3.6 Chloride 100 Carbon Dioxide 26.1 Anion Gap 8 BUN 12 Creatinine 0.97 Estimated GFR 78 L Random Glucose 102 Calcium 8.0 L Total Bilirubin 0.6 AST 13 L ALT 15 Alkaline Phosphatase 76 Total Protein 7.0 D Albumin 2.8 L Microbiology 12/07/17 14:45 Clean Catch Urine Urine Culture - Final No growth in 48 hours - Imaging Impressions Abdomen/Pelvis CT 12/08/17 00:00 CONCLUSION: 1. There is a 9.2 x 6.1 cm mass in the bladder predominantly on the left side with left-sided obstructive uropathy and hydronephrosis. Mass is likely neoplastic and contiguous with superior aspect of prostate. Cannot exclude extravesical extension inferiorly. 2. 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 Small fat-containing umbilical hernia Myocardial Perfusion Scan Nuc Med 12/08/17 00:00 CONCLUSION: 1. No fixed or reversible wall defect to suggest ischemia or infarction. 2. Decreased calculated ejection fraction of 35% with apparent mild global hypokinesis. This could indicate a cardiomyopathy. Assessment and Plan - Assessment (1) Atypical chest pain Code(s): R07.89 - Other chest pain Status: Acute Plan: This patient is a 62-year-old male with no follow-up with a primary care doctor. The patient lives at home with 2 roommates and he does not take care of himself very well. He does not take any medications and admits to an extensive tobacco smoking history one pack per day since the age of 16. He also drinks approximately a sixpack of beer every day. He presents to the emergency department today with complaints of chest pain. Chest pain initially occurred while the patient was ambulating and was radiating to his left upper extremity. He has not experienced this type of pain before. He says the chest pain is not necessarily associated with exertion. He has also been having hematuria over the past 10 days and has slightly gotten worse today. Because of his symptoms he came into the emergency department for evaluation. 1. Chest pain concern for acute coronary syndrome Patient is currently chest pain-free EKG shows normal sinus rhythm no acute ST or T wave changes beta-zaheer. troponin < 0.02 x 3 Nitroglycerin as needed for chest pain. Lexiscan reviewed and reveals: 1. No fixed or reversible wall defect to suggest ischemia or infarction. 2. Decreased calculated ejection fraction of 35% with apparent mild global hypokinesis. This could indicate a cardiomyopathy. 2D echocardiogram ordered and pending Hold aspirin due to hematuria 2. Hematuria The patient has an extensive tobacco smoking history. He has been started on IV fluids. Hemoglobin is stable. recheck CBC pending Ultrasound of the bladder reviewed and reveals: Bladder mass measuring up to 8.3 x 5.9 cm. Differential diagnosis includes neoplasm with hemorrhage. Discussed results with patient Consult urology 3. Alcohol abuse/tobacco smoking The patient was counseled on his tobacco and alcohol abuse. He will be given multivitamin, thiamine, folate. CIWA protocol He will also be given a nicotine patch, dose increased to 21 mg per patient request No pharmacotherapy for DVT prophylaxis given the patient's current hematuria. Patient is ambulatory. Discussed case with patient, nurse and Dr. Lacierda - Plan 62-year-old male with no follow-up with a primary care doctor. The patient lives at home with 2 roommates and he does not take care of himself very well. He does not take any medications and admits to an extensive tobacco smoking history one pack per day since the age of 16. He also drinks approximately a sixpack of beer every day. He presents to the emergency department today with complaints of chest pain. Chest pain initially occurred while the patient was ambulating and was radiating to his left upper extremity. He has not experienced this type of pain before. He says the chest pain is not necessarily associated with exertion. He has also been having hematuria over the past 10 days and has slightly gotten worse today. Because of his symptoms he came into the emergency department for evaluation. Chest pain concern for acute coronary syndrome Patient is currently chest pain-free EKG shows normal sinus rhythm no acute ST or T wave changes troponin < 0.02 x 3 Lexiscan reviewed and reveals: 1. No fixed or reversible wall defect to suggest ischemia or infarction. 2. Decreased calculated ejection fraction of 35% with apparent mild global hypokinesis. This could indicate a cardiomyopathy. Possible demand ischemia -2D echocardiogram ordered and pending. May need cardiology consult pending echo results. -started on Lopressor, continue. Begin ACEI. -Nitroglycerin as needed for chest pain. -12/09 complaining of cough with whitish sputum production. ?CHF exacerbation. O2 sats 99% on RA. Obtain CXR and BNP. Acute urinary retention with left sided hydronephrosis Hematuria The patient has an extensive tobacco smoking history. H/H has been stable Ultrasound of the bladder reviewed and reveals: Bladder mass measuring up to 8.3 x 5.9 cm. Differential diagnosis includes neoplasm with hemorrhage. -Evaluated by Urology, appreciate assistance. CT revealed 9.2x6.1 cm mass in the bladder predominantly on the left side with left sided obstructive uropathy and hydronephrosis. Mass is likely neoplastic and contiguous with superior aspect of prostate, cannot exclude extravesical extension. Will discuss findings with urology. -creatinine 0.97/GFR 78 -start Flomax 0.4mg now -sol catheter placed and 500cc of bloody urine drained. Monitor H/H closely. -continue to hold ASA -obtain UA. UCX 12/07 with no growth. Hypertension BP not well controlled -continue on Lopressor 12.5mg BID -begin Lisinopril 5mg daily -Clonidine prn with parameters -continue to monitor BP and adjust treatment accordingly Alcohol abuse/tobacco smoking The patient was counseled on his tobacco and alcohol abuse. -continue multivitamin, thiamine, folate. -[facility] protocol -He will also be given a nicotine patch, dose increased to 21 mg per patient request Suspect COPD, not in acute exacerbation no wheezing on exam -Duonebs -monitor respiratory status No pharmacotherapy for DVT prophylaxis given the patient's current hematuria. Patient is ambulatory. Discussed Condition With: patient, nursing staff, Dr. Agarwal Discharge Planning: Not ready for discharge.
[2017-12-09] MEDS ORDERED: amLODIPine 5 MG Tablet PO SCH (11:30)
--- NOTE | 2017-12-09 12:26 | XR ---
EXAM DATE: 12/09/2017 12:00 AM EDT AGE/SEX: 62 years / Male INDICATIONS: Cough. CLINICAL DATA: This is the patient's subsequent encounter. Patient reports that signs and symptoms h ave been present for 4 - 6 days and indicates a pain score of 0/10. MEDICAL/SURGICAL HISTORY: None. None. COMPARISON: [facility] [place], CHEST 1V SINGLE AP, 12/07/2017. . FINDINGS: No new focal pleural or parenchymal opacities. The cardiomediastinal contours are unremarkable. Remai nder of the exam is unchanged. CONCLUSION: 1. No acute abnormality or significant interval change. Electronically signed by: Julio C Palomino MD 12/09/2017 12:24 PM EDT
--- NOTE | 2017-12-09 13:02 | ECHRPT ---
Indication: CHEST PAIN CONCLUSIONS The left ventricular systolic function is low normal with an estimated ejection fraction in the rang e of 50- 55%. Normal left ventricular size. Wall thickness is normal. No regional wall motion abnormalities are present. BP: / HR: Rhythm: Sinus Technical Quality:Good FINDINGS LEFT VENTRICLE The left ventricular systolic function is low normal with an estimated ejection fraction in the rang e of 50- 55%. Normal left ventricular size. Wall thickness is normal. No regional wall motion abnormalities are present. RIGHT VENTRICLE Normal right ventricular size and systolic function. LEFT ATRIUM The left atrial size is normal. RIGHT ATRIUM The right atrial size is normal. ATRIAL SEPTUM Normal atrial septal thickness without atrial level shunting by limited color doppler interrogation. AORTA The aortic root and proximal ascending aorta are normal in size on limited imaging. MITRAL VALVE Structurally normal mitral valve. No mitral valve stenosis or regurgitation. AORTIC VALVE Trileaflet aortic valve. No aortic valve stenosis or regurgitation. TRICUSPID VALVE Structurally normal tricuspid valve. No tricuspid valve stenosis or regurgitation. PULMONARY VALVE The pulmonary valve is not well visualized. VESSELS The inferior vena cava is normal in size. PERICARDIUM No pericardial effusion. Aurelio Frost MD, FACC (Electronically Signed) Final Date:09 December 2017 13:01
[2017-12-09] MEDS: Lisinopril 5 MG Tablet PO SCH (13:52)
[2017-12-09 20:40] LABS: Hematocrit 44.3 % (39.0-51.0); Hemoglobin 14.6 gm/dL (13.0-17.0)
[2017-12-09 22:39] LABS: Bacteria,Urine Occasional /hpf; Bilirubin,Urine Negative (Negative); Glucose,Urine (UA) Negative (Negative); Leukocyte Esterase,Urine Moderate (Negative); Nitrite,Urine Negative (Negative); Specific Gravity,Urine 1.016 (1.002-1.035)
[2017-12-09 22:40] LABS: Clarity,Urine Marked (Clear); Color,Urine Red (Yellw/Straw)
[2017-12-10] MEDS: Sod Chloride 0.9% Inj 1,000 ML IV.CONT SCH ×3 (06:03→19:08)
[2017-12-10] MEDS: Folic Acid 1 MG Tablet PO SCH (06:04)
[2017-12-10 06:44] LABS: Baso % (Auto) 0.4 % (0.0-2.0); Eos # (Auto) 0.1 th/mm3 (0.0-0.4); Eos % (Auto) 0.6 % (0.0-4.0); Hematocrit 43.8 % (39.0-51.0); Hemoglobin 14.7 gm/dL (13.0-17.0); Lymph # (Auto) 1.4 th/mm3 (1.0-4.8); Lymph % (Auto) 14.2 % (9.0-44.0); Mean Corpuscular HGB Conc 33.7 % (32.0-36.0); Mean Corpuscular Hemoglobin 31.7 pg (27.0-34.0); Mean Corpuscular Volume 94.2 fL (80.0-100.0); Mean Platelet Volume 8.3 fL (7.0-11.0); Mono # (Auto) 1.1 th/mm3 (0.0-0.9); Mono % (Auto) 11.1 % (0.0-8.0); Neut # (Auto) 7.3 th/mm3 (1.8-7.7); Neut % (Auto) 73.7 % (16.0-70.0); Platelet Count 259 th/mm3 (150-450); Red Blood Count 4.65 mil/mm3 (4.50-5.90); Red Cell Distribution Width 14.1 % (11.6-17.2); White Blood Count 9.9 th/mm3 (4.0-11.0)
[2017-12-10 07:10] LABS: Calcium 8.1 mg/dL (8.5-10.1); Carbon Dioxide 24.2 meq/L (21.0-32.0); Potassium 3.9 meq/L (3.5-5.1)
[2017-12-10] MEDS: Lisinopril 5 MG Tablet PO SCH (09:07)
[2017-12-10] MEDS: Metoprolol Tartrate 25 MG Tablet PO SCH ×2 (09:08→21:32)
--- NOTE | 2017-12-10 15:36 | P.PNIM ---
Subjective Interval history: Urology has evaluated this patient and recommends outpatient follow-up. Hematuria remains without signs of improvement thus far, clot burden is a risk for urinary obstruction so catheter not yet removed. No pain complaints. Physical Exam Vital signs: Vital Signs 12/09/17 16:00 12/09/17 19:40 12/09/17 20:00 Temperature 97.8 F 98.3 F Pulse Rate 86 98 H 101 H Respiratory Rate 18 Blood Pressure 103/51 L 140/78 Pulse Oximetry 92 L 20 L 12/09/17 20:36 12/09/17 23:45 12/10/17 00:00 Temperature 98.1 F Pulse Rate 92 H 72 73 Respiratory Rate 16 20 Blood Pressure 120/64 Pulse Oximetry 97 96 12/10/17 04:00 12/10/17 08:00 12/10/17 08:12 Temperature 97.9 F 98.6 F Pulse Rate 107 H 95 H 72 Respiratory Rate 20 20 18 Blood Pressure 132/76 155/83 H Pulse Oximetry 97 95 97 12/10/17 12:00 12/10/17 12:06 12/10/17 12:42 Temperature 98.3 F Pulse Rate 78 74 71 Respiratory Rate 20 20 Blood Pressure 135/73 Pulse Oximetry 97 Intake & Output 12/09/17 12/10/17 12/10/17 18:59 06:59 18:59 Intake Total 480 / 480 1731 / 1731 389 / 389 Output Total 1477 / 1477 850 / 850 Balance -997 / -997 1727 / 1727 -461 / -461 Weight 108.862 kg Intake: IV 1611 / 1611 389 / 389 NS Inj 1,000 ML @ 100 mls/hr IV 1611 / 1611 389 / 389 .CONT .Q10H [facility] Rx#:[id number] Oral 480 / 480 120 / 120 Output: Urine 1475 / 1475 4 / 4 Stool 2 / 2 Urine Amount (Catheter) 850 / 850 Indwelling Urethral Catheter 850 / 850 Other: Date of Last Bowel Movement 12/09/17 12/09/17 # Bowel Movements 2 Narrative: GENERAL: NAD, A&Ox3, gross hematuria and Littlejohn catheter, with clots HEAD: Normocephalic. NECK: Supple, trachea midline. No lymphadenopathy. EYES: No scleral icterus. No injection or drainage. CARDIOVASCULAR: Regular rate and rhythm without murmurs, gallops, or rubs. RESPIRATORY: Breath sounds equal bilaterally. No accessory muscle use. GASTROINTESTINAL: Abdomen soft, non-tender, nondistended. MUSCULOSKELETAL: No cyanosis, or edema. SKIN: Warm and dry. NEURO: No focal neurological deficits. - Urinary Catheter Management Indwelling Urethral Catheter Cath placed during this visit: yes Reason for continuing: Gross Hematuria Insertion date: 12/09/17 Results - Labs CBC & Chem 7: 12/10/17 04:33 12/10/17 04:33 Laboratory Results - last 24 hr 12/09/17 12/09/17 12/10/17 20:20 20:35 04:33 WBC 9.9 RBC 4.65 Hgb 14.6 14.7 Hct 44.3 43.8 MCV 94.2 MCH 31.7 MCHC 33.7 RDW 14.1 Plt Count 259 MPV 8.3 Neut % (Auto) 73.7 H Lymph % (Auto) 14.2 Alexander % (Auto) 11.1 H Eos % (Auto) 0.6 Baso % (Auto) 0.4 Neut # (Auto) 7.3 Lymph # (Auto) 1.4 Alexander # (Auto) 1.1 H Eos # (Auto) 0.1 Baso # (Auto) 0.0 WBC Differential . Differential Comment Auto diff final Sodium Potassium Chloride Carbon Dioxide Anion Gap BUN Creatinine Estimated GFR Random Glucose Calcium Urine Color Red Urine Clarity Marked H Urine pH 6.0 Ur Specific Eastman 1.016 Urine Protein 100 H Urine Glucose (UA) Negative Urine Ketones Negative Urine Occult Blood Large H Urine Nitrate Negative Urine Bilirubin Negative Urine Urobilinogen 2.0 H Ur Leukocyte Esterase Moderate H Urine RBC Urine WBC 49 H Urine Bacteria Occasional H Micro UA Comment Culture indicated Ur Microscopic Review Not Reportable Urine Culture Comments Culture indicated 12/10/17 04:33 WBC RBC Hgb Hct MCV MCH MCHC RDW Plt Count MPV Neut % (Auto) Lymph % (Auto) Alexander % (Auto) Eos % (Auto) Baso % (Auto) Neut # (Auto) Lymph # (Auto) Alexander # (Auto) Eos # (Auto) Baso # (Auto) WBC Differential Differential Comment Sodium 135 L Potassium 3.9 Chloride 101 Carbon Dioxide 24.2 Anion Gap 10 BUN 13 Creatinine 0.95 Estimated GFR 80 L Random Glucose 98 Calcium 8.1 L Urine Color Urine Clarity Urine pH Ur Specific Eastman Urine Protein Urine Glucose (UA) Urine Ketones Urine Occult Blood Urine Nitrate Urine Bilirubin Urine Urobilinogen Ur Leukocyte Esterase Urine RBC Urine WBC Urine Bacteria Micro UA Comment Ur Microscopic Review Urine Culture Comments Microbiology 12/09/17 20:35 Clean Catch Urine Urine Culture - Preliminary No growth in 24 hours Assessment and Plan - Assessment (1) Atypical chest pain Code(s): R07.89 - Other chest pain Status: Acute Plan: This patient is a 62-year-old male with no follow-up with a primary care doctor. The patient lives at home with 2 roommates and he does not take care of himself very well. He does not take any medications and admits to an extensive tobacco smoking history one pack per day since the age of 16. He also drinks approximately a sixpack of beer every day. He presents to the emergency department today with complaints of chest pain. Chest pain initially occurred while the patient was ambulating and was radiating to his left upper extremity. He has not experienced this type of pain before. He says the chest pain is not necessarily associated with exertion. He has also been having hematuria over the past 10 days and has slightly gotten worse today. Because of his symptoms he came into the emergency department for evaluation. 1. Chest pain concern for acute coronary syndrome Patient is currently chest pain-free EKG shows normal sinus rhythm no acute ST or T wave changes beta-zaheer. troponin < 0.02 x 3 Nitroglycerin as needed for chest pain. Lexiscan reviewed and reveals: 1. No fixed or reversible wall defect to suggest ischemia or infarction. 2. Decreased calculated ejection fraction of 35% with apparent mild global hypokinesis. This could indicate a cardiomyopathy. 2D echocardiogram ordered and pending Hold aspirin due to hematuria 2. Hematuria The patient has an extensive tobacco smoking history. He has been started on IV fluids. Hemoglobin is stable. recheck CBC pending Ultrasound of the bladder reviewed and reveals: Bladder mass measuring up to 8.3 x 5.9 cm. Differential diagnosis includes neoplasm with hemorrhage. Discussed results with patient Consult urology 3. Alcohol abuse/tobacco smoking The patient was counseled on his tobacco and alcohol abuse. He will be given multivitamin, thiamine, folate. [facility] protocol He will also be given a nicotine patch, dose increased to 21 mg per patient request No pharmacotherapy for DVT prophylaxis given the patient's current hematuria. Patient is ambulatory. Discussed case with patient, nurse and Dr. Agarwal - Plan 62-year-old male admitted secondary to hematuria findings of large bladder mass. Chest pain present at time of admit, now resolved. Chest pain concern for acute coronary syndrome No recurrence of chest pain Negative cardiac workup Follow clinically for recurrence of symptoms Acute urinary retention left sided hydronephrosis Gross Hematuria Follow hemoglobin Urology following Outpatient urology follow-up plan Unable to remove catheter thus far due to persistent hematuria Follow renal function Holding aspirin Continue Flomax Hypertension Improving Continue Lopressor, lisinopril, and as needed clonidine Alcohol abuse [facility] protocol Nicotine dependence Continue nicotine patch DVT prophylaxis SCDs Ambulate Discharge Planning: Not ready for discharge until hematuria resolves and patient passes void trial. Outpatient urology follow up options needed prior to discharge
[2017-12-11] MEDS: Morphine Sulfate Inj 2 MG/ML Vial IV.PUSH PRN ×2 (02:49→23:36)
[2017-12-11] MEDS: Sod Chloride 0.9% Inj 1,000 ML IV.CONT SCH (03:11)
[2017-12-11] MEDS: Folic Acid 1 MG Tablet PO SCH (06:20)
[2017-12-11 09:38] LABS: Hematocrit 38.9 % (39.0-51.0); Hemoglobin 13.6 gm/dL (13.0-17.0)
[2017-12-11] MEDS: Lisinopril 5 MG Tablet PO SCH (09:54)
[2017-12-11] MEDS: Metoprolol Tartrate 25 MG Tablet PO SCH ×2 (09:54→20:17)
--- NOTE | 2017-12-11 11:27 | P.PNIM ---
Subjective Interval history: Clot burden remains high. Hematuria is only slightly improved he is on visualization and catheter 2. Patient had a clot with subsequent urinary obstruction of the catheter tube yesterday and required flushing to resolve the clot. Physical Exam Vital signs: Vital Signs 12/10/17 12:00 12/10/17 12:06 12/10/17 12:42 Temperature 98.3 F Pulse Rate 78 74 71 Respiratory Rate 20 20 Blood Pressure 135/73 Pulse Oximetry 97 12/10/17 16:00 12/10/17 16:39 12/10/17 20:00 Temperature 98.4 F Pulse Rate 75 84 82 Respiratory Rate 18 Blood Pressure 144/69 H Pulse Oximetry 98 12/10/17 20:22 12/10/17 20:29 12/11/17 00:00 Temperature 98.7 F 98 F Pulse Rate 82 85 76 Respiratory Rate 16 18 18 Blood Pressure 136/82 144/74 H Pulse Oximetry 98 92 L 12/11/17 03:11 12/11/17 04:00 12/11/17 07:00 Temperature 97.6 F Pulse Rate 70 69 Respiratory Rate 16 18 12 Blood Pressure 132/74 Pulse Oximetry 97 12/11/17 07:55 12/11/17 08:00 Temperature 98.1 F Pulse Rate 74 Respiratory Rate 20 Blood Pressure 137/75 Pulse Oximetry 97 97 Intake & Output 12/10/17 12/11/17 12/11/17 18:59 06:59 18:59 Intake Total 869 / 869 2240 / 2240 Output Total 1800 / 1800 1800 / 1800 Balance -931 / -931 440 / 440 Weight 110 kg Intake: IV 389 / 389 1999 NS Inj 1,000 ML @ 100 mls/hr IV 389 / 389 1999 .CONT .Q10H QI Rx#:[id number] Oral 480 / 480 240 / 240 Output: Urine 550 / 550 Urine Amount (Catheter) 1800 / 1800 1250 / 1250 Indwelling Urethral Catheter 1800 / 1800 1250 / 1250 Other: Date of Last Bowel Movement 12/09/17 12/09/17 # Bowel Movements 0 0 Weight On Admission 110 kg Narrative: GENERAL: NAD, A&Ox3, gross hematuria and Littlejohn catheter, with clots HEAD: Normocephalic. NECK: Supple, trachea midline. No lymphadenopathy. EYES: No scleral icterus. No injection or drainage. CARDIOVASCULAR: Regular rate and rhythm without murmurs, gallops, or rubs. RESPIRATORY: Breath sounds equal bilaterally. No accessory muscle use. GASTROINTESTINAL: Abdomen soft, non-tender, nondistended. MUSCULOSKELETAL: No cyanosis, or edema. SKIN: Warm and dry. NEURO: No focal neurological deficits. - Urinary Catheter Management Indwelling Urethral Catheter Cath placed during this visit: yes Reason for continuing: Gross Hematuria Insertion date: 12/09/17 Results - Labs CBC & Chem 7: 12/11/17 09:08 12/10/17 04:33 Laboratory Results - last 24 hr 12/11/17 09:08 Hgb 13.6 Hct 38.9 L Microbiology 12/09/17 20:35 Clean Catch Urine Urine Culture - Final No growth in 48 hours Assessment and Plan - Assessment (1) Atypical chest pain Code(s): R07.89 - Other chest pain Status: Acute Plan: This patient is a 62-year-old male with no follow-up with a primary care doctor. The patient lives at home with 2 roommates and he does not take care of himself very well. He does not take any medications and admits to an extensive tobacco smoking history one pack per day since the age of 16. He also drinks approximately a sixpack of beer every day. He presents to the emergency department today with complaints of chest pain. Chest pain initially occurred while the patient was ambulating and was radiating to his left upper extremity. He has not experienced this type of pain before. He says the chest pain is not necessarily associated with exertion. He has also been having hematuria over the past 10 days and has slightly gotten worse today. Because of his symptoms he came into the emergency department for evaluation. 1. Chest pain concern for acute coronary syndrome Patient is currently chest pain-free EKG shows normal sinus rhythm no acute ST or T wave changes beta-zaheer. troponin < 0.02 x 3 Nitroglycerin as needed for chest pain. Lexiscan reviewed and reveals: 1. No fixed or reversible wall defect to suggest ischemia or infarction. 2. Decreased calculated ejection fraction of 35% with apparent mild global hypokinesis. This could indicate a cardiomyopathy. 2D echocardiogram ordered and pending Hold aspirin due to hematuria 2. Hematuria The patient has an extensive tobacco smoking history. He has been started on IV fluids. Hemoglobin is stable. recheck CBC pending Ultrasound of the bladder reviewed and reveals: Bladder mass measuring up to 8.3 x 5.9 cm. Differential diagnosis includes neoplasm with hemorrhage. Discussed results with patient Consult urology 3. Alcohol abuse/tobacco smoking The patient was counseled on his tobacco and alcohol abuse. He will be given multivitamin, thiamine, folate. [facility] protocol He will also be given a nicotine patch, dose increased to 21 mg per patient request No pharmacotherapy for DVT prophylaxis given the patient's current hematuria. Patient is ambulatory. Discussed case with patient, nurse and Dr. Agarwal - Dinora 62-year-old male admitted secondary to hematuria findings of large bladder mass. Chest pain present at time of admit, now resolved. Urinary obstruction last night. Not safe for discharge home due to clot burden. Continue monitoring hematuria. Avoid aspirin. Improvement needed prior to void trial, improvement needed prior to consideration for discharge. Chest pain concern for acute coronary syndrome No recurrence of chest pain Negative cardiac workup Follow clinically for recurrence of symptoms Acute urinary retention left sided hydronephrosis Gross Hematuria Follow hemoglobin Urology following Outpatient urology follow-up plan Unable to remove catheter thus far due to persistent hematuria Follow renal function Holding aspirin Continue Flomax Hypertension Improving Continue Lopressor, lisinopril, and as needed clonidine Alcohol abuse [facility] protocol Nicotine dependence Continue nicotine patch DVT prophylaxis SCDs Ambulate Discharge Planning: Not ready for discharge until hematuria resolves and patient passes void trial. Outpatient urology follow up options needed prior to discharge
[2017-12-12] MEDS: Folic Acid 1 MG Tablet PO SCH (06:32)
[2017-12-12 08:17] LABS: Baso # (Auto) 0.1 th/mm3 (0.0-0.2); Baso % (Auto) 0.8 % (0.0-2.0); Eos # (Auto) 0.1 th/mm3 (0.0-0.4); Eos % (Auto) 1.7 % (0.0-4.0); Hematocrit 38.9 % (39.0-51.0); Hemoglobin 13.3 gm/dL (13.0-17.0); Lymph # (Auto) 1.7 th/mm3 (1.0-4.8); Lymph % (Auto) 18.5 % (9.0-44.0); Mean Corpuscular HGB Conc 34.3 % (32.0-36.0); Mean Corpuscular Hemoglobin 31.8 pg (27.0-34.0); Mean Corpuscular Volume 92.7 fL (80.0-100.0); Mean Platelet Volume 8.2 fL (7.0-11.0); Mono # (Auto) 0.9 th/mm3 (0.0-0.9); Mono % (Auto) 10.1 % (0.0-8.0); Neut # (Auto) 6.2 th/mm3 (1.8-7.7); Neut % (Auto) 68.9 % (16.0-70.0); Platelet Count 267 th/mm3 (150-450); Red Blood Count 4.19 mil/mm3 (4.50-5.90); Red Cell Distribution Width 13.9 % (11.6-17.2)
[2017-12-12 08:35] LABS: Albumin 2.8 g/dL (3.4-5.0); Anion Gap 8 meq/L (5-15); Aspartate Aminotransferase 17 U/L (15-37); Blood Urea Nitrogen 12 mg/dL (7-18); Calcium 8.3 mg/dL (8.5-10.1); Carbon Dioxide 26.9 meq/L (21.0-32.0); Chloride 103 meq/L (98-107); Glomerular Filtration Rate 72 mL/min (>89); Glucose,Random 89 mg/dL (74-106); Sodium 138 meq/L (136-145)
[2017-12-12 08:36] LABS: Alanine Aminotransferase 18 U/L (12-78)
[2017-12-12 08:39] LABS: Alkaline Phosphatase 73 U/L (45-117)
[2017-12-12] MEDS: Metoprolol Tartrate 25 MG Tablet PO SCH ×2 (10:10→20:45)
[2017-12-12] MEDS: Lisinopril 5 MG Tablet PO SCH (10:11)
--- NOTE | 2017-12-12 11:35 | P.PNIM ---
Subjective Interval history: Slight improvement in hematuria concentration. Patient did have a recurrence of urinary obstruction yesterday afternoon. No recurrence overnight or this morning of his urinary obstruction. Physical Exam Vital signs: Vital Signs 12/11/17 12:00 12/11/17 14:02 12/11/17 16:00 Temperature 98.0 F 97.7 F Pulse Rate 67 70 70 Respiratory Rate 20 12 18 Blood Pressure 146/82 H 130/68 Pulse Oximetry 98 99 12/11/17 19:33 12/11/17 19:34 12/11/17 19:44 Temperature 97.5 F L Pulse Rate 74 64 Respiratory Rate 16 18 Blood Pressure 143/73 H Pulse Oximetry 94 L 96 12/11/17 20:00 12/12/17 00:00 12/12/17 04:00 Temperature 97.4 F L 97.8 F Pulse Rate 73 80 78 Respiratory Rate 18 16 Blood Pressure 123/71 138/73 Pulse Oximetry 100 100 12/12/17 07:35 12/12/17 08:11 Temperature 97.3 F L Pulse Rate 62 67 Respiratory Rate 16 19 Blood Pressure 135/62 Pulse Oximetry 96 98 Intake & Output 12/11/17 12/12/17 12/12/17 18:59 06:59 18:59 Intake Total 1470 / 1470 360 / 360 Output Total 1675 / 1675 1500 / 1500 Balance -205 / -205 -1140 / -1140 Weight 109.7 kg Intake: IV 750 / 750 NS Inj 1,000 ML @ 100 mls/hr IV 750 / 750 .CONT .Q10H QI Rx#:[id number] Oral 720 / 720 360 / 360 Output: Urine 1675 / 1675 1500 / 1500 Other: Date of Last Bowel Movement 12/11/17 # Bowel Movements 0 0 Narrative: GENERAL: NAD, A&Ox3, gross hematuria and Littlejohn catheter, with clots HEAD: Normocephalic. NECK: Supple, trachea midline. No lymphadenopathy. EYES: No scleral icterus. No injection or drainage. CARDIOVASCULAR: Regular rate and rhythm without murmurs, gallops, or rubs. RESPIRATORY: Breath sounds equal bilaterally. No accessory muscle use. GASTROINTESTINAL: Abdomen soft, non-tender, nondistended. MUSCULOSKELETAL: No cyanosis, or edema. SKIN: Warm and dry. NEURO: No focal neurological deficits. - Urinary Catheter Management Indwelling Urethral Catheter Cath placed during this visit: yes Reason for continuing: Acute urinary retention Insertion date: 12/09/17 Results - Labs CBC & Chem 7: 12/12/17 06:47 12/12/17 06:47 Laboratory Results - last 24 hr 12/12/17 12/12/17 06:47 06:47 WBC 9.0 RBC 4.19 L Hgb 13.3 Hct 38.9 L MCV 92.7 MCH 31.8 MCHC 34.3 RDW 13.9 Plt Count 267 MPV 8.2 Neut % (Auto) 68.9 Lymph % (Auto) 18.5 [place] % (Auto) 10.1 H Eos % (Auto) 1.7 Baso % (Auto) 0.8 Neut # (Auto) 6.2 Lymph # (Auto) 1.7 [place] # (Auto) 0.9 Eos # (Auto) 0.1 Baso # (Auto) 0.1 WBC Differential . Differential Comment Auto diff final Sodium 138 Potassium 4.0 Chloride 103 Carbon Dioxide 26.9 Anion Gap 8 BUN 12 Creatinine 1.04 Estimated GFR 72 L Random Glucose 89 Calcium 8.3 L Total Bilirubin 0.4 AST 17 ALT 18 Alkaline Phosphatase 73 Total Protein 7.0 Albumin 2.8 L Microbiology 12/09/17 20:35 Clean Catch Urine Urine Culture - Final No growth in 48 hours Assessment and Plan - Assessment (1) Atypical chest pain Code(s): R07.89 - Other chest pain Status: Acute Plan: This patient is a 62-year-old male with no follow-up with a primary care doctor. The patient lives at home with 2 roommates and he does not take care of himself very well. He does not take any medications and admits to an extensive tobacco smoking history one pack per day since the age of 16. He also drinks approximately a sixpack of beer every day. He presents to the emergency department today with complaints of chest pain. Chest pain initially occurred while the patient was ambulating and was radiating to his left upper extremity. He has not experienced this type of pain before. He says the chest pain is not necessarily associated with exertion. He has also been having hematuria over the past 10 days and has slightly gotten worse today. Because of his symptoms he came into the emergency department for evaluation. 1. Chest pain concern for acute coronary syndrome Patient is currently chest pain-free EKG shows normal sinus rhythm no acute ST or T wave changes beta-zaheer. troponin < 0.02 x 3 Nitroglycerin as needed for chest pain. Lexiscan reviewed and reveals: 1. No fixed or reversible wall defect to suggest ischemia or infarction. 2. Decreased calculated ejection fraction of 35% with apparent mild global hypokinesis. This could indicate a cardiomyopathy. 2D echocardiogram ordered and pending Hold aspirin due to hematuria 2. Hematuria The patient has an extensive tobacco smoking history. He has been started on IV fluids. Hemoglobin is stable. recheck CBC pending Ultrasound of the bladder reviewed and reveals: Bladder mass measuring up to 8.3 x 5.9 cm. Differential diagnosis includes neoplasm with hemorrhage. Discussed results with patient Consult urology 3. Alcohol abuse/tobacco smoking The patient was counseled on his tobacco and alcohol abuse. He will be given multivitamin, thiamine, folate. [facility] protocol He will also be given a nicotine patch, dose increased to 21 mg per patient request No pharmacotherapy for DVT prophylaxis given the patient's current hematuria. Patient is ambulatory. Discussed case with patient, nurse and Dr. Agarwal - Plan 62-year-old male admitted secondary to hematuria findings of large bladder mass. Chest pain present at time of admit, now resolved. Urinary obstruction yesterday afternoon, that makes to urinary obstruction secondary to clot burden. Not safe for discharge home due to clot burden. Continue monitoring hematuria. Avoid aspirin. Improvement needed prior to void trial, improvement needed prior to consideration for discharge. Void trial will occur prior to discharge. Chest pain concern for acute coronary syndrome No recurrence of chest pain Negative cardiac workup Follow clinically for recurrence of symptoms Acute urinary retention left sided hydronephrosis Gross Hematuria Follow hemoglobin Urology following Outpatient urology follow-up plan Unable to remove catheter thus far due to persistent hematuria Follow renal function Holding aspirin Continue Flomax Hypertension Improving Continue Lopressor, lisinopril, and as needed clonidine Alcohol abuse [facility] protocol Nicotine dependence Continue nicotine patch DVT prophylaxis SCDs Ambulate Discharge Planning: Not ready for discharge until hematuria resolves and patient passes void trial. Outpatient urology follow up options needed prior to discharge
[2017-12-13] MEDS: Folic Acid 1 MG Tablet PO SCH (06:17)
[2017-12-13] MEDS: Metoprolol Tartrate 25 MG Tablet PO SCH ×2 (08:32→21:06)
[2017-12-13] MEDS: Lisinopril 5 MG Tablet PO SCH (08:33)
[2017-12-13 08:46] LABS: Hematocrit 41.4 % (39.0-51.0)
--- NOTE | 2017-12-13 10:34 | P.PNIM ---
Subjective Interval history: No obstruction in the last 24 hours. Urine continues to slightly improve through time. Patient has no complaints of pain. Physical Exam Vital signs: Vital Signs 12/12/17 11:46 12/12/17 12:00 12/12/17 13:46 Temperature 97.3 F L 97.3 F L Pulse Rate 72 73 58 L Respiratory Rate 18 18 16 Blood Pressure 144/65 H 144/72 H Pulse Oximetry 97 97 12/12/17 16:00 12/12/17 19:49 12/12/17 20:00 Temperature 98.2 F Pulse Rate 71 68 99 H Respiratory Rate 16 18 Blood Pressure 153/74 H Pulse Oximetry 99 96 12/13/17 00:00 12/13/17 04:00 12/13/17 07:47 Temperature 97.8 F 97.8 F Pulse Rate 66 68 63 Respiratory Rate 16 18 20 Blood Pressure 148/72 H 138/80 Pulse Oximetry 97 96 12/13/17 07:48 Temperature Pulse Rate Respiratory Rate Blood Pressure Pulse Oximetry 95 Intake & Output 12/12/17 12/13/17 12/13/17 18:59 06:59 18:59 Intake Total 960 / 960 240 / 240 Output Total 1100 / 1100 1500 / 1500 Balance -140 / -140 -1260 / -1260 Weight 110.1 kg Intake: Oral 960 / 960 240 / 240 Output: Urine 1100 / 1100 1500 / 1500 Other: # Bowel Movements 0 Narrative: GENERAL: NAD, A&Ox3, gross hematuria and Littlejohn catheter, with clots HEAD: Normocephalic. NECK: Supple, trachea midline. No lymphadenopathy. EYES: No scleral icterus. No injection or drainage. CARDIOVASCULAR: Regular rate and rhythm without murmurs, gallops, or rubs. RESPIRATORY: Breath sounds equal bilaterally. No accessory muscle use. GASTROINTESTINAL: Abdomen soft, non-tender, nondistended. MUSCULOSKELETAL: No cyanosis, or edema. SKIN: Warm and dry. NEURO: No focal neurological deficits. - Urinary Catheter Management Indwelling Urethral Catheter Cath placed during this visit: yes Reason for continuing: Acute urinary retention Insertion date: 12/09/17 Results - Labs CBC & Chem 7: 12/13/17 07:09 12/12/17 06:47 Laboratory Results - last 24 hr 12/13/17 07:09 Hgb 14.0 Hct 41.4 Assessment and Plan - Assessment (1) Atypical chest pain Code(s): R07.89 - Other chest pain Status: Acute Plan: This patient is a 62-year-old male with no follow-up with a primary care doctor. The patient lives at home with 2 roommates and he does not take care of himself very well. He does not take any medications and admits to an extensive tobacco smoking history one pack per day since the age of 16. He also drinks approximately a sixpack of beer every day. He presents to the emergency department today with complaints of chest pain. Chest pain initially occurred while the patient was ambulating and was radiating to his left upper extremity. He has not experienced this type of pain before. He says the chest pain is not necessarily associated with exertion. He has also been having hematuria over the past 10 days and has slightly gotten worse today. Because of his symptoms he came into the emergency department for evaluation. 1. Chest pain concern for acute coronary syndrome Patient is currently chest pain-free EKG shows normal sinus rhythm no acute ST or T wave changes beta-zaheer. troponin < 0.02 x 3 Nitroglycerin as needed for chest pain. Lexiscan reviewed and reveals: 1. No fixed or reversible wall defect to suggest ischemia or infarction. 2. Decreased calculated ejection fraction of 35% with apparent mild global hypokinesis. This could indicate a cardiomyopathy. 2D echocardiogram ordered and pending Hold aspirin due to hematuria 2. Hematuria The patient has an extensive tobacco smoking history. He has been started on IV fluids. Hemoglobin is stable. recheck CBC pending Ultrasound of the bladder reviewed and reveals: Bladder mass measuring up to 8.3 x 5.9 cm. Differential diagnosis includes neoplasm with hemorrhage. Discussed results with patient Consult urology 3. Alcohol abuse/tobacco smoking The patient was counseled on his tobacco and alcohol abuse. He will be given multivitamin, thiamine, folate. [facility] protocol He will also be given a nicotine patch, dose increased to 21 mg per patient request No pharmacotherapy for DVT prophylaxis given the patient's current hematuria. Patient is ambulatory. Discussed case with patient, nurse and Dr. Agarwal - Dinora 62-year-old male admitted secondary to hematuria findings of large bladder mass. Chest pain present at time of admit, now resolved. Void trial. Continue to monitor urine output. Urine to be collected in a urinal to glass carrier clot burden and color. Possible discharge tomorrow if patient has no urinary obstruction and his hematuria continues to improve through time. Chest pain concern for acute coronary syndrome No recurrence of chest pain Negative cardiac workup Follow clinically for recurrence of symptoms Acute urinary retention left sided hydronephrosis Gross Hematuria Follow hemoglobin Urology following Outpatient urology follow-up plan Unable to remove catheter thus far due to persistent hematuria Follow renal function Holding aspirin Continue Flomax Hypertension Improving Continue Lopressor, lisinopril, and as needed clonidine Alcohol abuse [facility] protocol Nicotine dependence Continue nicotine patch DVT prophylaxis SCDs Ambulate Discharge Planning: Not ready for discharge until hematuria resolves and patient passes void trial. Outpatient urology follow up options needed prior to discharge
[2017-12-14 01:33] VITALS: O2SAT 97
[2017-12-14] MEDS: Folic Acid 1 MG Tablet PO SCH (06:06)
[2017-12-14 08:47] VITALS: RESP 18
[2017-12-14] MEDS: Metoprolol Tartrate 25 MG Tablet PO SCH (09:27)
[2017-12-14] MEDS: Lisinopril 5 MG Tablet PO SCH (09:27)
--- NOTE | 2017-12-14 11:49 | P.DS ---
Date of admission: 12/07/17 16:42 Primary care physician: No Primary Care Physician Brief History from admission: This patient is a 62-year-old male with no follow-up with a primary care doctor. The patient lives at home with 2 roommates and he does not take care of himself very well. He does not take any medications and admits to an extensive tobacco smoking history one pack per day since the age of 16. He also drinks approximately a sixpack of beer every day. He presents to the emergency department today with complaints of chest pain. Chest pain initially occurred while the patient was ambulating and was radiating to his left upper extremity. He has not experienced this type of pain before. He says the chest pain is not necessarily associated with exertion. He has also been having hematuria over the past 10 days and has slightly gotten worse today. Because of his symptoms he came into the emergency department for evaluation. The patient denied having any shortness of breath, no diarrhea, no nausea, no vomiting, no fevers or chills. Past medical history the patient does not have any known diagnosis. Surgical history appendectomy nearly 30 years ago Family history significant for prostate cancer in his father, he says his mother also had cancer but does not remember what kind. Social history the patient admits to smoking tobacco 1 pack/day since the age of 16, drinks approximately 6 beers per day. DS: Diagnosis - Discharge Diagnosis (1) Atypical chest pain Status: Acute DS: Medications - Discharge Medications Prescriptions: atorvastatin 40 mg PO HS #30 tab lisinopril 5 mg PO DAILY #30 tab metoprolol tartrate 12.5 mg PO BID #30 tab nicotine 1 patch TRANSDERMAL DAILY #14 ea tamsulosin 0.4 mg PO DAILY #30 cap DS: Summary Hospital Course: Mr. Son is a 62-year-old male. He was admitted secondary to chest pain and hematuria. Chest pain workup was negative. He does have underlying cardiac disease. During his hospital stay he has been started on lisinopril, metoprolol, and statin. Aspirin is recommended but not at this time due to hematuria. Hematuria has been present before and this was a recurrence of this problem. Outpatient urological workup for a bladder mass has been recommended by urology. Littlejohn catheter was left in place until clot burden and urinary obstruction problems resolved. Catheter has been removed and urine output has been monitored for 24 hours at this point without any urinary obstruction and with further improvement in hematuria. At this point patient is medically stable and cleared for discharge to home today on new medication treatments as listed below and with outpatient urological follow-up. - Time Spent with Patient Total time spent providing and/or coordinating discharge services: Less than 30 minutes - Quality: VTE Deep Vein Thrombosis/Pulmonary Embolism Present on Admission: No Exam Vital signs: Vital Signs 12/13/17 12:00 12/13/17 16:00 12/13/17 19:31 Temperature 97.8 F 98.0 F Pulse Rate 70 82 74 Respiratory Rate 18 18 18 Blood Pressure 141/76 H 143/70 H Pulse Oximetry 96 95 12/13/17 19:32 12/13/17 19:58 12/13/17 20:00 Temperature 98.5 F Pulse Rate 78 80 Respiratory Rate 16 Blood Pressure 145/80 H Pulse Oximetry 96 96 12/14/17 00:00 12/14/17 04:00 12/14/17 08:00 Temperature 97.9 F 97.2 F L 97.1 F L Pulse Rate 70 62 69 Respiratory Rate 16 16 18 Blood Pressure 140/82 147/90 H 158/87 H Pulse Oximetry 97 97 97 12/14/17 09:52 Temperature Pulse Rate Respiratory Rate Blood Pressure Pulse Oximetry 97 Intake & Output 12/13/17 12/14/17 12/14/17 18:59 06:59 18:59 Intake Total 708 / 708 120 / 120 Output Total 2350 / 2350 1050 / 1050 Balance -1642 / -1642 -930 / -930 Weight 110.4 kg Intake: Oral 708 / 708 120 / 120 Output: Urine 850 / 850 1050 / 1050 Urine Amount (Catheter) 1500 / 1500 Indwelling Urethral Catheter 1500 / 1500 Results Procedures completed during hospitalization: Echo - Impressions ITS Impressions Abdomen/Bladder Ultrasound 12/07/17 00:00 CONCLUSION: 1. Bladder mass measuring up to 8.3 x 5.9 cm. Differential diagnosis includes neoplasm with hemorrhage. Abdomen/Pelvis CT 12/08/17 00:00 CONCLUSION: 1. There is a 9.2 x 6.1 cm mass in the bladder predominantly on the left side with left-sided obstructive uropathy and hydronephrosis. Mass is likely neoplastic and contiguous with superior aspect of prostate. Cannot exclude extravesical extension inferiorly. 2. 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 Small fat-containing umbilical hernia Myocardial Perfusion Scan Nuc Med 12/08/17 00:00 CONCLUSION: 1. No fixed or reversible wall defect to suggest ischemia or infarction. 2. Decreased calculated ejection fraction of 35% with apparent mild global hypokinesis. This could indicate a cardiomyopathy. Chest X-Ray 12/09/17 00:00 CONCLUSION: 1. No acute abnormality or significant interval change. Discharge Plan - Discharge Disposition Patient Disposition: Discharge Home - Discharge Condition Condition: Stable - Discharge Order Discharge Orders: Discharge Order (Routine); Ordered 12/14/17 Ordered By: Luis Maciel - Discharge Details Anticipated Discharge Date: 12/14/17 - Physicians Team Primary Care Provider: Primary Care Jordin,Trupti Attending Provider: Luis Maciel Other Providers: Braydon Ho MD
[2017-12-14 13:02] VITALS: BP 138/78; TEMP 98.2
[2017-12-14 14:07] VITALS: PULSE 70
== END 2017-12-14 14:23 | disposition home or self-care (01) ==
LOC: NEPE 14:28 → NEDA 14:28 → N04 19:45
PROVIDERS: ADMIT Hospitalist; ATTEND Hospitalist